=== PATIENT | male | born 1960 | race Caucasian/White ===

== ENCOUNTER 2025-07-22 08:06 | Outpatient (AMB) | payer MEDICARE, SELFPAY ==
--- OUTSIDE RECORDS SUMMARY | 2025-07-22 08:14 | XMS_ITS | Encounter Summary ---
Author Organization [facility] Address [address] [facility] [address] [place] [address] Phone Care Team Providers Care Brush Loader And Handle Attacher Name Role Phone Trae Arevalo MD Primary Care Provide r Radha Boles DO Primary Care Provider [phone]- [phone] Jovana Pearson MD Primary Care Provider [phone]- [phone] Encounter Details Date Type Department Care Team (Late st Contact Info) Description 04/28/2018 Transcribe Orders [facility] 30 [place] [address] Trae Arevalo MD 22 [facility] Floor 1 [place] [address] [email or web address] Social History Tobacco Use Types Packs/Day Years Used Date Smoking Tobacco: Former Cigarettes 0.3 5 1 10/03/1971 - 08/02/1977 Smokeless Tobacco: Never Alcohol Use Standard Drinks/Week Comments Yes 3 (1 standard drink = 0.6 oz pur e alcohol) Sex and Gender Information Value Date Recorded Sex Assigned at Male 02/04/2019 1:46 AM EDT Legal Sex Male 4:05 PM EST Gender Identity Male 02/04/2019 1:46 AM EDT Sexual Orientation Straight 03/16/2022 11 :25 AM EDT 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 journeyman Not on file Not on file Not on file documented as of this encounter Plan of Treatment Upcoming Encounters Date Type Department Care Team (Late st Contact Info) Description 08/05/2025 10:40 AM EST Office Visit [facility] 15 [facility] [address] [place] [address] Jovana Pearson MD [address] [address] 2025 10:45 AM EST Appointment [facility] [place] 22 [facility] 3rd [place] [address] Gera Harrington MD 22 [facility], [address] [address] 08/14/2025 11:30 AM EST Office Visit [facility] 22 [facility] 3rd [facility], [address] [place] [address] Woo Garcia, AGENT BASED MODELER [address] [place] [address] 01/27/2026 10:45 AM EDT Office Visit [facility] 10 [place] [address] Isaías Guidry MD [address] [place] [address] 2nd [place] [address] 02/10/2026 1:40 PM EDT Office Visit [facility] 15 [facility] [address] [place] [address] Jovana Pearson MD [address] [address] documented as of this encounter Visit Diagnoses Not on filedocumented in this encounter Additional Health Concerns Infection Onset Date Last Indicated Resolved Time CoV-Risk 01/09/2021 01/09/2021 01/19/2021 1:23 AM EDT CoV-Risk Comment:Per Ambulatory Triage Form 07/27/2021 07/28/202107/28 7:05 PM EST COVID-19 07/28/2021 07/28/2021 08/18/2021 1:21 AM EST CoV-Risk 12/02/2022 12/02/2022 12/13/2022 1:21 AM EDT documented as of this encounter Care Teams Brush Loader And Handle Attacher Relationship Specialty Start Date End Date Trae Arevalo MD [email or web address] PCP - General Internal Medicine 07/05/17 08/31/18 Radha Boles DO [address] [place] [phone] [email or web address] PCP - General 09/01/18 01/01/21 Jovana Pearson MD [address] [place] [address] [email or web address] PCP - General Family Medicine 01/02/21 documented as of this encounter Additional Source Comments The information contained in this document represents components of the legal health record. It is not the complete legal health record.[facility]
--- OUTSIDE RECORDS SUMMARY | 2025-07-22 08:14 | XMS_ITS | Encounter Summary ---
Author Organization [facility] Address [address] 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 201 [place] [address] 2025 10:45 AM EST Appointment [facility] [place] 22 [facility] 3rd [place] [address] Gera Harrington MD 22 [facility], [address] [place] [address] 08/14/2025 11:30 AM EST Office Visit [facility] 22 [facility] 3rd [facility], [address] [place] [address] Woo Garcia, [address] [address] 01/27/2026 10:45 AM EDT Office Visit [facility] [address] [place] [address] Isaías Guidry MD [address] [place] [address] 02/10/2026 1:40 PM EDT Office Visit [facility] [place] [facility] 15 [facility] [address] [place] [address] Jovana Pearson MD 15 [facility]. 201 [place] [address] documented as of this encounter Visit Diagnoses Not on filedocumented in this encounter Additional Health Concerns Infection Onset Date Last Indicated Resolved Time CoV-Risk 01/09/2021 01/09/2021 01/19/2021 1:23 AM EDT CoV-Risk Comment:Per Ambulatory Triage Form 07/27/2021 07/28/202107/281 7:05 PM EST COVID-19 07/28/2021 07/28/2021 08/18/2021 1:21 AM EST CoV-Risk 12/02/2022 12/02/2022 12/13/2022 1:21 AM EDT documented as of this encounter Care Teams Television Actor Relationship Specialty Start Date End Date Trae Arevalo MD [email or web address] PCP - General Internal Medicine 07/05/17 08/31/18 Radha Boles DO [address] [place] [address] [email or web address] PCP - General 09/01/18 01/01/21 Jovana Pearson MD [address] [place] [address] [email or web address] PCP - General Family Medicine 01/02/21 documented as of this encounter Additional Source Comments The information contained in this document represents components of the legal health record. It is not the complete legal health record.[facility]
--- OUTSIDE RECORDS SUMMARY | 2025-07-22 08:14 | XMS_ITS | Encounter Summary ---
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 [place] [address] 2025 10:45 AM EST Appointment [facility] [place] 22 [facility] 3rd [place] [address] Gera Harrington MD 22 [facility], [address] [place] [address] 08/14/2025 11:30 AM EST Office Visit [facility] 22 [facility] 3rd [facility], [address] [place] [address] Woo Garcia, [address] [address] 01/27/2026 10:45 AM EDT Office Visit [facility] [address] [place] [address] Isaías Guidry MD [address] [place] [address] 02/10/2026 1:40 PM EDT Office Visit [facility] [place] [facility] 15 [facility] [address] [place] [address] Jovana Pearson MD 15 [facility]. 201 [place] [address] documented as of this encounter Visit Diagnoses Not on filedocumented in this encounter Additional Health Concerns Infection Onset Date Last Indicated Resolved Time CoV-Risk 01/09/2021 01/09/2021 01/19/2021 1:23 AM EDT CoV-Risk Comment:Per Ambulatory Triage Form 07/27/2021 07/28/202107/281 7:05 PM EST COVID-19 07/28/2021 07/28/2021 08/18/2021 1:21 AM EST CoV-Risk 12/02/2022 12/02/2022 12/13/2022 1:21 AM EDT Assessment Noted Time PHQ-2 Depression Total Score: 1 06/27/20 11:38 AM EDT documented as of this encounter Care Teams Clinic Receptionist Relationship Specialty Start Date End Date Trae Arevalo MD [email or web address] PCP - General Internal Medicine 07/05/17 08/31/18 Radha Boles DO [address] [place] [address] [email or web address] PCP - General 09/01/18 01/01/21 Jovana Pearson MD [address] [place] [address] [email or web address] PCP - General Family Medicine 01/02/21 documented as of this encounter Additional Source Comments The information contained in this document represents components of the legal health record. It is not the complete legal health record.[facility]
--- OUTSIDE RECORDS SUMMARY | 2025-07-22 08:14 | XMS_ITS | Encounter Summary ---
Author Organization [facility] Address [address] [facility] [address] [place] [address] Phone Care Team Providers Care Cpht Name Role Phone Trae Arevalo MD Primary Care Provide r Radha Boles DO Primary Care Provider [phone]- [phone] Jovana Pearson MD Primary Care Provider [phone]- [phone] Encounter Details Date Type Department Care Team (Late st Contact Info) Description 05/09/2018 Ancillary Orders [facility] Rheumatology [address] [place] [address] Eduin Paris MD [email or web address] Claudication Social History Tobacco Use Types Packs/Day Years [...] 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 [address] [place] [address] 2025 10:45 AM EST Appointment [facility] [address] 3rd [place] [address] Gera Harrington MD 22 [facility], [address] [place] [address] 08/14/2025 11:30 AM EST Office Visit [facility] [address] [place] [address] 3rd Floor, [address] [place] [address] Woo Garcia, [address] [address] 01/27/2026 10:45 AM EDT Office Visit [facility] [address] [place] [address] Isaías Guidry MD [address] [place] [address] 02/10/2026 1:40 PM EDT Office Visit [facility] Primary Care 15 [facility] [address] [place] [address] Jovana Pearson MD 15 [facility]. 201 [place] [address] documented as of this encounter Results * US Ankle/Brachial Indices (05/09/2018 4:42 PM EDT) Anatomical Region Laterality Modality Ankle Left, Ankle Right Ultrasou nd Narrative 05/10/2018 10:45 AM EDT See scanned document us Eduin Paris MD CV US VASCULAR Final Resu lt documented in this encounter Visit Diagnoses Diagnosis Claudication Unspecified peripheral vascular disease Claudication Unspecified peripheral vascular disease documented in this encounter Additional Health Concerns Infection Onset Date Last Indicated Resolved Time CoV-Risk 01/09/2021 01/09/2021 01/19/2021 1:23 AM EDT CoV-Risk Comment:Per Ambulatory Triage Form 07/27/2021 07/28/202107/28 7:05 PM EST COVID-19 07/28/2021 07/28/2021 08/18/2021 1:21 AM EST CoV-Risk 12/02/2022 12/02/2022 12/13/2022 1:21 AM EDT documented as of this encounter Care Teams Cpht Relationship Specialty Start Date End Date Trae Arevalo MD [email or web address] PCP - General Internal Medicine 07/05/17 08/31/18 Radha Boles DO [address] [place] [address] [email or web address] PCP - General 09/01/18 01/01/21 Jovana Pearson MD [address] [place] [address] [email or web address] PCP - General Family Medicine 01/02/21 documented as of this encounter Additional Source Comments The information contained in this document represents components of the legal health record. It is not the complete legal health record.[facility]
--- OUTSIDE RECORDS SUMMARY | 2025-07-22 08:14 | XMS_ITS | Clinical Summary ---
Author Organization Formerly [facility] Address [address] [facility] [address] [place] [phone] Phone Care Team Providers Care Bunk Assembler Name Role Phone Jovana Pearson MD Primary Care Provider Allergies Active Allergy Reactions Criticality Noted Date Comments Amoxicillin Nausea and/or Vomiting 08/02/2017 Does fine with cephalosporins Caffeine 12/02/2022 Erythromycin (Bulk) Nausea and/or Vomiting 08/02/2017 Tolerates azithromycin Moxifloxacin Mental Status Change 08/02/2017 Agitation (encephalopathy) Sulfa (Sulfonamide Antibiotics) Diarrhea,GI Upset,Nausea and/or Vomiting 06/27/2017 Tizanidine 04/28/2020 Nightmare Zolmitriptan Palpitations Low 08/02/2017 Medications MV,YAZAN,MIN/IRON/F OLIC ACID/LUT (COMPLETE MULTI ORAL) 1 tablet daily. Active cholecalciferol (VITAMIN D3) 4,000 unit tablet 1 tablet daily. Active Lactobac 41-B.bifid,lactis -FOS (ULTIMATE PROBIOTIC-10) 111 mg (25 billion cell) Cap Take 1 capsule by mouth daily. 30 capsule 11 7 Active aspirin 81 mg chewable tablet Take 81 mg by mouth daily. Active ZINC ORAL Take by mouth. Activ e LYSINE ORAL Take by mouth as needed. Active ECHINACEA ORAL Take by mouth. Active butterbur root extract 50 mg Cap Take by mouth. Active solifenacin (VESICARE) 10 MG tablet Take 10 mg by mouth every morning. 4 Active dicyclomine (BENTYL) 20 mg tablet Take 1 tablet (20 mg total) by mouth every 6 (six) hours as needed (for abdominal spasm). 30 tablet 1 4 Active flunisolide 25 mcg (0.025 %) SpryIndications:A cute non-recurrent frontal sinusitis INHALE TWO SPRAYS IN THE AFFECTED NOSTRIL TWICE A DAY 25 mL 5 5 Active promethazine (PHENERGAN) 25 MG tabletIndications :Nonintractable headache, unspecified chronicity pattern, unspecified headache type TAKE ONE TABLET BY MOUTH EVERY 6 HOURS NEEDED FOR NAUSEA 20 tablet 11 5 Active amLODIPine (NORVASC) 10 MG tabletIndications :Essential hypertension TAKE ONE TABLET BY MOUTH EVERY DAY 90 tablet 3 5 Active atorvastatin (LIPITOR) 20 MG tablet TAKE ONE TABLET BY MOUTH EVERY DAY 90 tablet 3 5 Active escitalopram oxalate (LEXAPRO) 10 MG tablet TAKE ONE AND ONE-HALF TABLET BY MOUTH ONCE DAILY 135 tablet 3 5 Active BREO ELLIPTA 100-25 mcg/dose inhaler INHALE ONE PUFF BY MOUTH EVERY DAY 60 each 4 5 Active buPROPion (WELLBUTRIN XL) 300 MG ER 24 hr tabletIndications :Recurrent major depressive disorder, in full remission Take 1 tablet (300 mg total) by mouth daily. 90 tablet 3 5 Active albuterol 90 mcg/actuation inhalerIndication s:Mild intermittent asthma without complication Inhale 2 puffs into the lungs every 4 (four) hours as needed for wheezing or shortness of breath/dyspnea (and/or chest tightness). 8 g 1 5 Active Active Problems Problem Noted Date Diagnosed Date Spinal stenosis of lumbar region 05/17/2024 Assessment & Plan (12/04/2024 1:29 PM EDT): Assessment & Plan (05/17/2024 1:30 PM EDT): His prior surgeon Dr Payton has retired but I will refer him back to [facility] for further E&M [place] cardiac risk 10-20% in next 10 years 05/17/2024 Overview (05/17/2024): With severe atherosclerosis seen on abdominal imaging. Started statin 04/2024 Assessment & Plan (12/04/2024 1:29 PM EDT): Assessment & Plan (05/17/2024 1:32 PM EDT): Reviewed atherosclerosis findings and cardiac risk with pt; his LDL is good but with visible severe atherosclerosis, elevated risk, HTN and h/o cardiac tumor I recommend statin therapy. He is in agreement. Primary osteoarthritis involving multiple joints 08/05/2023 Assessment & Plan (01/28/2024 8:50 PM EDT): Osteoarthritis in multiple joints along with spinal stenosis. He can continue with gabapentin 300 mg a day as needed. He otherwise does well with minimal stiffness and no swelling. Assessment & Plan (08/05/2023 2:58 PM EST): Known degenerative osteoarthritis in multiple areas with stiffness but no swelling. He has had spinal fusion in the lumbar spine as well. He can continue with gabapentin 300 mg twice a day. He does not need any trigger point injections today. He will call me if he runs into trouble. Seasonal allergies 01/06/2023 Overactive bladder 07/13/2022 Assessment & Plan (12/04/2024 1:29 PM EDT): Routine medical exam 05/14/2021 Assessment & Plan (08/04/2023 1:49 PM EST): 62 y.o. male here for complete physical exam. We discussed the need for increasing his asthma controller medicines given frequent use of rescue inhaler both to improve quality of life and to decrease inflammation and COPD progression. I will reach out to his ventilated rib fitter about this. Ramiro was not previously aware of any scrotal swelling so it has been asymptomatic. I sent him for an ultrasound to evaluate for hernia vs hydrocele vs varicocele (it doesnot seem to be arising from the testis per se) and reviewed warning signs of incarcerated or strangulated hernia that should prompt him to seek emergency care in the meantime. Other comorbidities stable and/or managed by specialists as noted in the HPI. USPSTF A&B recommendations reviewed with pt. BP: At goal, continue current medications Lab Results Component Value Date NA 140 02/09/2023 K 4.2 02/09/2023 CL 102 02/09/2023 CO2 29 02/09/2023 BUN 12 02/09/2023 CRE 0.70 02/09/2023 UCRE 135 05/13/2021 GLU 75 02/09/2023 CA 9.5 02/09/2023 GFR 104 02/09/2023 ANION 13 02/09/2023 BMI: WNL STI testing for teens and adults at risk, and at least one lifetime HIV and hep C test: Done previously and normal/negative PrEP for persons at high risk of HIV: N/A plans in the next year: N/A patient/partner is postmenopausal Depression and anxiety screens: Positive and we agreed to increase his lexapro from 15 --> 20 mg. Let's see if that helps with the fatigue. Smoking cessation counseling: N/A Alcohol use counseling: N/A LTBI screening in people at increased risk: N/A Vaccinations: TD today, recommend RSV Last dental visit: up to date Lipid screening to consider statin for primary prevention for adults 40-75, or at younger ages with risk factors: checked last year, repeat 3-5 years This SmartLink has been updated to reference the ASCVD 2013 equation and not the 2018 equations. The 10-year ASCVD risk score (Fide CHA, et al., 2019) is: 7.8% Values used to calculate the score: Age: 62 years Sex: Male Is Non- : No Diabetic: No Tobacco smoker: No Systolic Blood Pressure: 118 mmHg Is BP treated: Yes HDL Cholesterol: 75 mg/dL Total Cholesterol: 178 mg/dL Glucose/diabetes screening for people 35 - 70 with BMI >25: N/A Aspirin for primary prevention for adults 40-59 with risk >10%, but no older: N/A Colonoscopy for adults 45-75, and can consider at older ages: overdue, referred to [facility] Serial lung cancer screening for adults age 50-80 with 20+ pack year history who currently smoke or quit in the last 15 years: N/A Prostate screening discussion for people with a prostate age 55-69: WNL last year, will repeat next year DEXA screen for women 65 or older, or others at risk (e.g. Parental h/o hip fx, low BMI, smoking, OST score <2 = 0.2 x[@LASTWEIGHT@ - 62 y.o.] ): has osteoporosis and I have previously recommended a bisphosphonate. He is considering this. Assessment & Plan (07/13/2022 4:08 PM EST): 61 y.o. male here for complete physical exam. Discussed that RSV testing will not provide actionable clinical information in a man his age. He is not around anybody young enough to be particularly vulnerable. He is not having a COPD exacerbation and meets criteria for antibiotics at this time. He is not short of breath so does not need oral steroids. I encouraged Ramiro to discuss his Raynaud's disease with his medicine assistant in hopes that they have something more to add, since neither appropriate clothing nor a hefty dose of amlodipine have been helpful. We discussed that his urinary symptoms are likely attributable to an enlarged prostate. Since he is having symptoms, and since his father had prostate cancer, I do recommend checking a PSA. However, BPH is more common. We discussed that this is a treatable condition. Whether it needs to be treated/is uncomfortable enough to warrant taking another medication on top of the medicines he takes already is a question that I leave up to him. I did offer him a prescription for Flomax and he declines this today but will think about it. If he decides in the future that that is something he would like to take he is welcome to call me and I will prescribe it for him USPSTF A&B recommendations reviewed with pt. BP: At goal, continue current medications BMI: WNL STI testing for teens and adults at risk, and at least one lifetime HIV and hep C test: Done previously and normal/negative PrEP for persons at high risk of HIV: N/A plans in the next year: N/A patient/partner is postmenopausal Depression screen: Negative Smoking cessation counseling: N/A Alcohol use counseling: N/A LTBI screening in people at increased risk: Done previously and normal/negative Vaccinations: up to date Last dental visit: up to date Lipid screening to consider statin for primary prevention for adults 40-75, or at younger ages with risk factors: done last year, will repeat This SmartLink has been updated to reference the ASCVD 2013 equation and not the 2018 equations. The 10-year ASCVD risk score (Fide CHA, et al., 2019) is: 7.3% Values used to calculate the score: Age: 61 years Sex: Male Is Non- : No Diabetic: No Tobacco smoker: No Systolic Blood Pressure: 118 mmHg Is BP treated: Yes HDL Cholesterol: 67 mg/dL Total Cholesterol: 166 mg/dL Glucose/diabetes screening for people 35 - 70 with BMI >25: N/A Colonoscopy for adults 45-75, and can consider at older ages: Referred to [facility] Serial lung cancer screening for adults age 50-80 with 20+ pack year history who currently smoke or quit in the last 15 years: N/A Prostate screening discussion for people with a prostate age 55-69: will do DEXA screen for women 65 or older, or others at risk (e.g. Parental h/o hip fx, low BMI, smoking, OST score <2 = 0.2 x[@LASTWEIGHT@ - 61 y.o.] ): will do to monitor osteopenia Assessment & Plan (05/14/2021 4:08 PM EDT): 60 y.o. male here for complete physical exam. I recommend he use his inhalers when he is short of breath. Other medical conditions are stable USPSTF A&B recommendations reviewed with pt. BP: At goal, continue current medications BMI: WNL STI testing for teens and adults at risk, and at least one lifetime HIV and hep C test: HIV done today, HCV negative previously PrEP for persons at high risk of HIV: N/A plans in the next year: N/A patient/partner is postmenopausal Depression screen: per above Smoking cessation counseling: N/A Alcohol use counseling: about 2/night. Sometimes he's concerned about it, sometimes it's more than 2. I certainly do not recommend he drink any more than 2 at night and if he is concerned about it, he should drink less. I advised him not to buy it in the first place. LTBI screening in people at increased risk: Done previously and normal/negative per pt Vaccinations: shingrix #1 today, otherwise up-to-date Last dental visit: up to date Lipid screening to consider statin for primary prevention for adults 40-75, or at younger ages with risk factors: will do today Glucose/diabetes screening for people 35 - 70 with BMI >25: N/A Colonoscopy for adults 45-75, and can consider at older ages: due, referred to [facility] Aspirin for primary prevention for adults 50-59 with risk >10%, and can consider for 60-69: Depends on lipids Serial lung cancer screening for adults age 50-80 with 20+ pack year history who currently smoke or quit in the last 15 years: N/A Prostate screening discussion for people with a prostate age 55-69: done today Chronic obstructive pulmonary disease 06/01/2019 Assessment & Plan (12/04/2024 1:29 PM EDT): Assessment & Plan (09/06/2023 4:52 PM EST): Improving, but still significantly impaired. This is a good time for a chest x- ray although he has already had azithromycin so there's probably not anything to add from a medication standpoint Assessment & Plan (05/17/2023 4:07 PM EDT): With increased dyspnea, increased sputum purulence, and arguably increased sputum production. Discussed rationale for abx in this setting. Low suspicion for PNA given afebrile, normal O2 sat, normal lung exam, but abx will cover this anyway. Discussed that it is hard to know whether he needs prednisone for dyspnea since he has not had access to albuterol. Unfortunately I cannot offer a breathing tx in clinic to see how he responds. Will refill rescue inhaler and prescribed prednisone; advised Ramiro if the albuterol works well and he needs it infrequently there is no need for prednisone but if he is needing it multiple times per day I would go ahead and take the prednisone due to increased work of breathing, increased inflammation, risk of tachyphylaxis, and risk of worsening the tachycardia he is already presenting with today. Assessment & Plan (01/06/2023 2:58 PM EDT): Recommend trial of nasal antihistamine for allergy symptoms in addition to the medicines that he is currently using. Recommend that he carry around his rescue inhaler for breathing as his lungs sound pretty tight on exam right now. Unfortunately I was not able to offer him a nebulizer treatment as we are currently under public health emergency guidelines. Assessment & Plan (11/24/2022 1:40 PM EDT): With increased sputum production, increased sputum purulence, and increased dyspnea. Recommend abx, recommend prednisone. Discussed R&B of doxycycline including but not limtied to GI upset, sun exposure rash; of prednisone including but not limited to temporary increased in BP, activating sx. Unclear if there is a concomitant sinusitis but doxycycline should cover both. Assessment & Plan (01/08/2022 1:06 PM EDT): We discussed the pathophysiology of asthma. I recommend that he start using his albuterol when he feels short of breath. I explained that given his comorbidities, it is difficult to say just based on our conversation whether it is his heart or his lungs that are making him short of breath but if he gets some relief from his albuterol that it is at least partially pulmonary. If he does find it is effective for shortness of breath brought on by particular activities then he should go ahead and use it prior to those activities. I further explained that if his asthma is untreated then chronic inflammation in the lungs can lead to scarring and, later on, worse asthma. Therefore, if he does get relief from his albuterol, and if he is needing it more than once or twice per week, he should go ahead and start his Flovent for a controller medicine. I will start him on the lowest dose and if he does find that he needs it I would like to know how he is doing on it because if it is not enough then we will increase the dose. Assessment & Plan (06/01/2019 11:58 AM EDT): The patient has a mild to moderate COPD exacerbation is gradually improving. I reviewed with him the fact that he does indeed have chest x-ray findings consistent with COPD and I strongly encouraged him to quit smoking marijuana and avoid exposure to secondhand smoke. For now he can continue using his inhalers and when his symptoms start to improve and resolve he can discontinue the steroid inhaler and just use the albuterol as needed. He should also follow-up as scheduled with his PCP to discuss whether he should be on a controller medication. Mild intermittent asthma without complication Assessment & Plan (05/08/2024 9:27 AM EDT): His asthma/COPD overlap is well-controlled with daily use of Breo. He has not required the use of albuterol recently. He should continue using Breo daily and keep albuterol available for emergencies. PAD (peripheral artery disease) 06/15/2018 Overview (06/24/2022): low LDL but elevated CAD risk 2020 (8.2%), declined statin Assessment & Plan (12/04/2024 1:29 PM EDT): Assessment & Plan (07/03/2024 5:06 PM EST): Currently without any symptoms concerning for claudication On his lower extremity CHRISTOPHER/duplex that was just done CHRISTOPHER numbers slightly higher but overall probably unchanged, bilateral stents are patent. He did have a CTA done due to his GI issues, which was notable for moderate- severe aorta aortoiliac atherosclerosis. Severe atherosclerosis seen in the bifurcation of the bilateral common femoral arteries. His PCP started him on atorvastatin 20 mg following the results of the CTA. Repeat lipids/LFTs mid July, LDL goal should be less than 70 Continue aspirin 81 mg daily Follow-up with Dr. Harrington in 6 months Assessment & Plan (03/30/2023 1:11 PM EDT): He has peripheral arterial disease. He had an angiogram at [facility] which showed a moderate disease on the right side, see above. He had angioplasty and stenting to the right distal SFA and the right proximal popliteal artery. He was initially reporting a lot of pain in his foot and edema in his leg. Over the past month, his symptoms have significantly improved. He is no longer getting pain in the right foot. He has minimal lower extremity edema. He is very happy with the results. His follow-up CHRISTOPHER was normal. Assessment & Plan (02/23/2023 2:40 PM EDT): He has peripheral arterial disease. He had an angiogram at [facility] and had right distal SFA and right proximal popliteal artery occlusion and received angioplasty and stenting to both. He has had a lot of lower extremity edema on the right. He has a difficult time walking and has pain in his foot. A week later, he had an ultrasound which showed that the popliteal artery was patent. There was probably some stenosis in the right superficial femoral artery. Today, we asked the geologic technician if she would be able to do an CHRISTOPHER. CHRISTOPHER was done and was normal on both sides, 0.94 on the right and 0.98 on the left. We also asked the geologic technician to rule out DVT. The venous ultrasound did show no evidence of DVT. Given this normal testing, I have suggested that the patient follow-up in 1 month. Assessment & Plan (02/04/2023 3:01 PM EDT): Reviewed MARCELO/CHRISTOPHER with Dr Harrington, he has an occluded right popliteal artery. This is correlative with his progressive claudication symptoms. Will get him set up for a peripheral angiogram at [facility] in the near future. He will continue aspirin. Assessment & Plan (05/13/2022 3:50 PM EDT): Reviewed his recent MARCELO and CHRISTOPHER. No explanation for the cramping he's experiencing in his right leg (he does have a history of spinal issues, I've encouraged him to follow up with the provider managing this condition). He will continue aspirin. Repeat MARCELO/CHRISTOPHER in 6 months. Hypertensive disorder 07/06/2017 Assessment & Plan (02/05/2025 4:28 PM EDT): At goal for age and comorbidities without signs or symptoms of end organ damage. Continue current medications. Assessment & Plan (12/04/2024 1:29 PM EDT): At goal for age and comorbidities without signs or symptoms of end organ damage. Continue current medications. Orders: Lipid panel; Future Assessment & Plan (07/03/2024 5:07 PM EST): Blood pressure little elevated here in the office today 132/92 Not checking blood pressure at home He did start checking his blood pressure at home, if persistently elevated can adjust his antihypertensives as needed Assessment & Plan (05/08/2024 9:26 AM EDT): At goal for age and comorbidities without signs or symptoms of end organ damage. Continue current medications. Assessment & Plan (03/30/2023 1:11 PM EDT): Blood pressure in the office today is elevated. His blood pressures are usually normal. He tells me that he believes his blood pressure is elevated because he is having issues getting his psychiatric medications refilled. We will keep an eye on this. He will continue to take his current medications. Assessment & Plan (02/23/2023 2:40 PM EDT): Adequately controlled. No medication changes. Assessment & Plan (01/06/2023 2:58 PM EDT): At goal for age and comorbidities without signs or symptoms of end organ damage. Continue current medications. Assessment & Plan (06/24/2022 12:59 PM EDT): Not at goal because not taking amlodipine and night sweats have not resolved. Sounds like these are a lingering symptom of COVID which I expect will continue to improve slowly as they have been but I would really like Ramiro to start taking his medicine again tonight, which he agrees to do. Assessment & Plan (01/08/2022 1:07 PM EDT): At goal, continue current medications. Further work-up for dyspnea pending per Dr. Harrington. Assessment & Plan (05/18/2018 4:05 PM EDT): His blood pressures well controlled on the amlodipine. He was started on this primarily because of his Raynaud's phenomenon. 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 Villarreal) Assessment & Plan (12/04/2024 1:29 PM EDT): Assessment & Plan (07/03/2024 5:08 PM EST): Apparently this was excised at [facility] with Dr. Juarez He just had an echocardiogram done which did not show any evidence of myxoma Assessment & Plan (05/08/2024 9:27 AM EDT): The recent echocardiogram showed normal ejection fraction and no evidence of myxoma. However, the study was technically difficult due to tight rib spaces. Additional imaging, such as a CAT scan, may be recommended by his medicine assistant if clinically indicated but we reviewed his prior TTE which showed the same findigns of tight rib spacing and no further imaging was felt necessary at the time. He has an appointment with the medicine assistant's nurse practitioner next month to discuss further steps. Recurrent major depressive disorder, in full rem ission Assessment & Plan (02/05/2025 4:28 PM EDT): - Reports feeling better on Wellbutrin 300 mg daily and has noticed an improvement in mood. - Continues to experience difficulty getting out of bed in the morning despite adequate sleep. - Discussed the importance of being kind to oneself and not feeling guilty about occasional difficulty in getting up. - Will continue with the current dosage of Wellbutrin 300 mg daily and Lexapro as previously prescribed. Assessment & Plan (12/04/2024 1:29 PM EDT): Will try tapering off medications. He prefers to start with the Wellbutrin. Decrease from 300 XL daily to 100 SR BID to 100 SR daily and then f/u in person; if that goes well will taper off Lexapro too. Discussed possibility of withdrawal sx (not unsafe, can slow down taper PRN) vs recrudescent mood sx (a good indicator to resume use). Assessment & Plan (10/04/2023 1:42 PM EST): Feeling much better w/current medicines and less recreational substance use. Continue current regimen. Localized osteoporosis Overview (03/03/2023): Osteopenia 2017 --> osteoporosis R femur 2022 Assessment & Plan (12/11/2018 12:03 PM EDT): Fall and fracture prevention strategies and maintenance of vitamin D3 1000 units daily will be done. Bone densitometry should be repeated in 2020. Raynaud's syndrome Assessment & Plan (01/08/2022 1:10 PM EDT): Okay to use topical steroid for up to a couple of weeks to help with healing. Continue generous use of topical emollients. Recommend use of silk glove liners in winter and minimize exposure to cold as much as possible. Assessment & Plan (02/20/2018 12:01 PM EDT): Raynaud's disease has been active but stable without digital pits or ulcers on 5 mg of amlodipine daily and good oral hydration. Resolved Problems Problem Noted Date Diagnosed Date Resolved Date Noninfectious gastroenteritis and colitis 05/17/2024 12/04/2024 Assessment & Plan (05/17/2024 1:28 PM EDT): The etiology of his colitis remains uncertain, but the rapid resolution of his symptoms is a positive sign. He experienced severe stomach cramps followed by diarrhea and significant rectal bleeding, which led to an ER visit. A CT scan did not reveal any definite cause, but colitis was suspected. Normal lactate argues against ischemia and normal CBC against acute infection. He was given an antispasmodic and an acid-reducing medication which he is encoruaged to continue for sx relief. He has an appointment with gastroenterology on June 26, 2024, and all relevant information, including ER notes and the CT scan, will be forwarded to [facility]. He should continue to monitor his symptoms and maintain a high-fiber diet. Night sweats 09/06/2023 10/04/2023 Overview (10/04/2023): Probably 2/2 EtOH - much improved w/less drinking Assessment & Plan (09/06/2023 4:53 PM EST): I do not think he needs to see hem/onc yet. Will start with labs as noted here as well as his chest x-ray. Most likely contributory medication is his escitalopram but he has been on the same dose for several years so it is probably not an issue. I asked him to stop drinking beer completely for at least a week to see if that eliminates his night sweats and then we can take it from there. Asthma exacerbation 09/01/2023 10/04/19 24 Scrotal swelling 08/04/2023 10/04/2023 Overview (10/04/2023): US sounds hydrocele. Asx, no intervention Right leg swelling 06/08/2022 Assessment & Plan (06/08/2022 12:46 PM EDT): Patient completed the course of Augmentin for dog bite on the right paiz. Decreased erythema noted edema and pain over the lateral malleolus and distal tibia on the right. Ultrasound obtained on last visit which was negative for DVT -We will hold on further antibiotics -Obtain x-ray of the right tibia to rule out fracture -Start diclofenac 75 mg p.o. twice daily, patient was a advised to avoid NSAIDs -Orthotics and prosthetics referral for compression stocking -labs: CBC,BMP,RF, SAILAJA, uric acid, CRP, ESR Right leg pain 05/25/2022 06/08/2022 Assessment & Plan (05/25/2022 10:54 AM EDT): Patient noted to have a right lower extremity positive edema and surrounding erythema with open wounds secondary to dog bite which was about 2 weeks ago. The patient states that the dog is up-to-date on all vaccines. -start Augmentin 875mg po bid -wash and cleanse the region and put antibiotic ointment -US of RLE to r/o DVT/abscess -Tdap up to date. COVID-19 05/14/2022 06/08/2022 Pain in right thigh 10/08/2021 06/08/20 22 Overview (10/08/2021): Exam suggests OA right hip Knee exam fairly normal , suspect pain referred from hip Check XR Right hip, R knee Less like radiculopathy XR [place] [facility] pending Assessment & Plan (02/01/2022 12:25 PM EDT): Exam suggests OA right hip Knee exam fairly normal , suspect pain from hip Check CR hip and knee Less likely radiculopathy but he does have significant degenerative changes of the spine Cervical radiculopathy 06/17/202006/08 Assessment & Plan (06/17/2020 11:35 AM EDT): He has a mild exacerbation after over exerting over the weekend. He has not seen much improvement yet with gabapentin. I advised him to increase the dose to 300 mg in the morning and 600 mg at night for the next 4 to 5 days. If he is not seeing any improvement he can increase to 300 morning, 300 afternoon, and and 600 mg at bedtime. He will start physical therapy as recommended previous not seeing improvement he will follow-up as scheduled with [facility]. Cervical stenosis of spine 04/30/2020 1 Assessment & Plan (04/30/2020 12:22 PM EDT): Patient presents with 2-week history of acute left-sided radicular cervical pain. I reviewed the x-ray which shows severe multilevel spondylitic changes with both facet arthropathy and discogenic disease but no spondylolisthesis and I strongly suspect that he has a disc herniation or rather severe acute left neuroforaminal stenosis. An MRI is requested and he will finish up the course of prednisone and I gave him a refill in case he has recurrence of pain afterwards. I will review the MRI and then decide on injection therapy, referral to physiatry, or physical therapy. As I explained to him today his usual tender point injections for his lumbar enthesopathy will be withheld today because he is on glucocorticoids. All of his questions were answered. 28 minutes was spent in [id number] conversation with the patient during this exam. Injury of tendon of left rotator cuff 04/30/2020 06/08/2022 Assessment & Plan (04/30/2020 12:21 PM EDT): Coincident with his cervical radiculopathy I believe he is also incurred an impingement syndrome in the left shoulder. This has resolved partially with the glucocorticoids given by his primary care physician. Range of motion and pendulum and wall walking motion exercises followed perhaps by a cortisone injection may be helpful. I doubt a rotator cuff tear of significant nature. 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 Alcohol abuse 05/18/2018 06/08/2022 Overview (01/08/2022): In remission as of 2021 Assessment & Plan (05/18/2018 4:06 PM EDT): I believe he drinks excessively. He does drink every day and based on his blood work he has elevated liver enzymes and an elevated MCV. I recommended that he try to cut back on drinking or abstain completely. Claudication of left lower extremity 02/20/2018 05/14/2021 Assessment & Plan (05/18/2018 4:06 PM EDT): He does have significant claudication. He has peripheral arterial disease with severe stenosis of the right SFA and occlusion of the left SFA. His symptoms do sound like claudication. I discussed management options with him. I initially was going to start him on cilostazol however this is contraindicated on his antidepressant as they can both together prolonged QT. He does feel very limited by his leg pain. Ultimately we decided to proceed with a peripheral angiogram. This will be set up at [facility] within the next several weeks. I will plan to try to open up his left SFA to see if this relieves his symptoms. Risks and benefits explained. I did recommend that he take a baby aspirin lifelong. We will continue to optimize his cardiac risk factors. I am going to check some blood work including a lipid profile. Assessment & Plan (02/20/2018 12:02 PM EDT): Patient's exertional left calf burning it is consistent with vascular claudication. Of interest as he has markedly diminished dorsalis pedis and posterior tibialis pulses bilaterally so we will obtain ultrasound and arterial flow studies. Multiple drug allergies 08/08/201704/29 Overview (08/08/2017): Mostly intolerances - constrains antibiotic choices Methicillin susceptible Stap hylococcus aureus infection 08/02/2017 05/17/2024 Assessment & Plan (10/04/2023 1:43 PM EST): Responding appropriately to abx. Per pt request, refilled keflex to have on hand if this flares again; this last one started over the weekend and he prefers not to have to wait to start tx. Cautioned about not using abx if the interval inbetween flares is very long. Chronic folliculitis 08/02/2017 021 Migraine 08/02/2017 06/08/2022 Anemia 07/06/2017 06/19/2019 Edema of extremities 07/06/2017 021 Hemorrhoids 07/06/2017 06/08/2022 Neuritis of upper extremity 07/06/2017 06/08/2022 Osteoporosis 07/06/2017 06/08/2022 Spinal enthesopathy of lumbar region 07/06/2017 06/08/2022 Assessment & Plan (01/29/2020 2:46 PM EDT): Acute flare of lumbosacral spinal enthesopathy will be treated with local injection therapy today. Assessment & Plan (06/11/2019 12:50 PM EDT): Relative rest, local heat, continuance of current medication and local injection therapy today will be accomplished. Assessment & Plan (03/12/2019 12:08 PM EDT): Patient is having a flareup of lumbosacral spinal enthesopathy which should be treated with local injection therapy today. This has been helpful before. In addition I would like him to continue on the S[place] as needed at nighttime. He will also continue warmth as needed. There are no long track signs, signs of neurogenic claudication or lumbar radiculopathy. Assessment & Plan (12/11/2018 12:03 PM EDT): Flare of lumbar enthesopathy today will be treated with local injection into the left iliolumbar ligament. He does have multilevel lumbar spondylosis but no signs of radiculopathy or neurogenic claudication. Assessment & Plan (09/04/2018 12:44 PM EST): Patient is having a flareup of right lumbosacral spinal enthesopathy without evidence of neurogenic claudication or radiculopathy. He will receive a cortisone injection today. Overall axial and appendicular osteoarthritis as well as chronic intermittent low back pain is well controlled using 75 mg of diclofenac twice daily on an as-needed basis. He rarely takes 2 pills a day and tolerates it well. We discussed long-term potential risks of diclofenac including liver function abnormalities and indeed on his last liver functions the transaminases were slightly elevated. We also talked about potential cardiovascular complications. I would like to find him another NSAID to use. We will first check his comprehensive chemistry profile today and will get back to him by phone call within the next 48 hours. All of his questions were answered. Assessment & Plan (02/20/2018 12:00 PM EDT): Flaring back pain and the patient with an enthesopathy process and multilevel lumbar spondylosis of be treated with local injection therapy today. Spondylolisthesis 07/06/2017 06/08/2022 Spondylolisthesis at L4-L5 level 06/08/2022 Assessment & Plan (05/04/2022 11:33 AM EDT): Hx of chronic LBP, receives intermittent trigger point injections with relief with myofascial pain Repeated TP injections today--> please see procedure note Continue HEP May continue low dose Gabapentin BID. Denies sedation XR -did show progression of degenerative arthritis Stable anterolisthesis of L5 on S1of lumbar spine -continue acupuncture which has been helpful; -continue HEP -may continue CBD oil which he has found helpful Assessment & Plan (02/01/2022 12:22 PM EDT): Hx of chronic LBP, receives intermittent trigger point injections with relief Repeated TP injections today--> please see procedure note Continue HEP May continue low dose Gabapentin BID. Denies sedation XR -did show progression of degenerative arthritis Stable anterolisthesis of L5 on S1of lumbar spine Assessment & Plan (10/08/2021 1:16 PM EST): Hx of chronic LBP, receives intermittent trigger point injections with relief Repeated TP injections today--> please see procedure note Continue HEP May continue low dose flexeril q hs which has been helpful and Gabapentin BID. Denies sedation XR -UTD images of lumbar spine today Methicillin susceptible Stap hylococcus aureus infection 06/08/2022 Overview (05/14/2021): With recurrent abscesses, was on suppressive cephalexin and now just as needed Encounters Date Type Department Care Team Description 07/05/2025 9:53 AM EST - 07/05/2025 11:59 PM EST Hospital Encounter [facility] [address] [place] [address] Gera Harrington MD Discharge Disposition: Home or Self Care 06/03/2025 10:45 AM EDT Office Visit [facility] [address] [place] [address] Isaías Guidry MD Mild intermittent asthma without complication from Last 3 Months Immunizations Immunization Administration Dates Next Due COVID-19 (Pre-06/20) Moderna Vaccine, mRNA, PF 12/21/2020,11/23/2020 INFLUENZA, SPLIT VIRUS, TRIVALENT PF 05/07/2024, 05/27/2017,05/28/2016 INFLUENZA, SPLIT VIRUS, TRIV ALENT W/ PRESERVATIVE IM 06/17/2014,06/14/2012 Influenza Quadrivalent MDCK Preservative Free IM 07/15/2021 Influenza Quadrivalent Preservative Free IM 04/2023,06/23/2022 Influenza Quadrivalent w/ Preservative IM 2014 Influenza Recombinant Soraya valent Preservative Free IM 05/20/2020,06/01/2019,05/16/2018 Influenza trivalent preserva tive free intradermal 05/22/2013 Influenza, Unspecified Formulation 05/20/2020, Pneumococcal conjugate PCV13 06/29/2018 Pneumococcal conjugate PCV20 12/03/2024 Pneumococcal polysaccharide PPSV23 05/22/2013 Td (adult),2 Lf Tetanus Toxo id, PF, Adsorbed 08/03/2023 Td, unspecified formulation 08/29/1998 Tdap 11/30/2012 Zoster recombinant 01/07/2022,05/13/2021 Family History Medical History Relation Comments Prostate cancer Father Heart attack Mother Hypertension Mother Rheumatoid arthritis Mother Severe, wit h multiple complications Alcohol abuse Son not in recovery Drug abuse Son Relation Status Comments Father (Age 85) Mother (Age 80) Son Alive Social History Tobacco Use Types Packs/Day Years Used Date Smoking Tobacco: Former Cigarettes 0.3 5 1 10/03/1971 - 08/02/1977 Smokeless Tobacco: Never Tobacco Cessation:Counseling Given: Not Answered Alcohol Use Standard Drinks/Week Comments Yes 3 (1 standard drink = 0.6 oz pur e alcohol) 3 weekly Child or Family Care Answer Date Record ed Do you have problems with on e of the following making it difficult for you to work, study, or receive health care? I choose not to answer 12/03/2024 Education Answer Date Recorded Are you interested in help w ith more adult education (for example, completing high school, GED, job training, learning the [place] language, technical skills, or developing parenting skills)? I choose not to answer 12/03/2024 Are you concerned about learning? Not on file 12/03/2024 No 12/03/2024 Yes 12/03/2024 Food Answer Date Recorded Within the past 6 months we worried whether our food would run out before we got money to buy more. I choose not to answer 12/03/2024 Within the past 6 months the food we bought just didn't last and we didn't have enough money to get more. I choose not to answer 12/03/2024 Residential Stability Answer Date Recor ded What is your housing situation today? I choose n ot to answer 12/03/2024 How many times have you move d in the past 12 months? I choose not to answer 12/03/2024 Paying for Meds Answer Date Recorded Do you have trouble paying for medicines? I lexis se not to answer 12/03/2024 Paying Utility Bills Answer Date Record ed Do you have trouble paying y our heating or electricity bill? I choose not to answer 12/03/2024 Transportation Answer Date Recorded Has the lack of transportati on kept you from medical appointments or from getting medications? I choose not to answer 12/03/2024 Unemployment Answer Date Recorded Are you currently unemployed or working on a part-time or temporary basis, and looking for work? No 07/12/2022 Digital Access Answer Date Recorded Yes 12/03/2024 Yes 12/03/2024 Do you have reliable internet access at home? Ye s 12/03/2024 Do you have a device (e.g., phone, tablet, computer) with a working camera? No 12/03/2024 Intimate Partner Violence Answer Date R ecorded Are you denied basic needs s uch as food, clothing, or medical care? No 12/03/2024 In the past 12 months have y ou been in a relationship with a person who hurts, threatens, or tries to control you? Deferred 12/03/2024 Are you denied basic needs s uch as food, clothing, or medical care? No 12/03/2024 In the past 12 months have y ou been in a relationship with a person who hurts, threatens, or tries to control you? 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 Not on file Not on file Last Filed Vital Signs Vital Sign Reading Time Taken Comments Blood Pressure 122/70 06/03/2025 10:30 AM EDT Pulse 70 06/03/2025 10:30 AM EDT Temperature 36.3 C (97.3 F) 06/03/2025 10:30 AM EDT Respiratory Rate 16 09/19/2024 11:24 AM EST Oxygen Saturation 95% 06/03/2025 10:30 AM EDT Inhaled Oxygen Concentration - - Weight 72.1 kg (159 lb) 06/03/2025 10:30 AM EDT Height 180.3 cm (5' 11 ) 06/03/2025 10:30 AM EDT Body Mass Index 22.18 06/03/2025 10:30 AM EDT Plan of Treatment Upcoming Encounters Date Type Department Care Team (Late st Contact Info) Description 08/05/2025 10:40 AM EST Office Visit [facility] [address] [place] [address] [address] [place] [address] Jovana Pearson MD [address] [facility]. [address] [place] [id number] 2025 10:45 AM EST Appointment [facility] [address] [place] [address] Gera Harrington MD 22 [facility], [address] [place] [address] 08/14/2025 11:30 AM EST Office Visit [facility] [address] [place] [address] 3rd Floor, [address] [place] [address] Woo Garcia, [address] [address] 01/27/2026 10:45 AM EDT Office Visit [facility] [address] [place] [address] Isaías Guidry MD 10 [facility] [address] [place] [address] 02/10/2026 1:40 PM EDT Office Visit [facility] [address] [place] [address] [address] [place] [address] Jovana Pearson MD 15 [facility]. [address] [place] [address] [phone] (work) Health Maintenance Due Date Last Done Comments COLOGUARD 2004 FIT TEST 2004 FOBT 2004 SIGMOIDOSCOPY 2004 VIRTUAL COLONOSCOPY 2004 RSV VACCINE (1 - Risk 50-74 years 1-dose series) 2009 ABDOMINAL AORTIC ANEURYSM (AAA) SCREENING 2024 05/11/2024, 05/11/2024, 04/08/2020 INFLUENZA VACCINE (#1) 2025 , 06/06/2023, 06/23/2022, Additional history exists COVID-19 VACCINE (2024- season) 2025 03/25/2025, 06/09/2024, 07/13/2023, Additional history exists BLOOD PRESSURE 12/02/2025 06/03/2025 DEPRESSION SCREENING 02/04/2026 02/04/2025, 02/05/20 25 LIPID PANEL 12/03/2029 12/03/2024, 04/29, 07/12/2022, Additional history exists Adult Td,Tdap Booster 08/03/2033 08/03/2023 , 11/30/2012, 08/29/1998 COLONOSCOPY 09/19/2034 09/19/2024 COLORECTAL CANCER SCREENING 09/19/2034 HEPATITIS C SCREENING Completed 02/23/2018, 018 HIV ONE-TIME SCREENING (18-65 YEARS) Completed 05/13/2021 ZOSTER VACCINES Completed 01/07/2022, 05/13/2021 PNEUMOCOCCAL VACCINES (50+ years) Completed 12/03/2024, 06/29/2018, 05/22/2013 SMOKING STATUS SCREENING (Once After 26 Yrs) Completed 06/03/2025 HEPATITIS A VACCINES Aged Out No long er eligible based on patient's age to complete this topic HIB VACCINES Aged Out No longer eligi ble based on patient's age to complete this topic MENINGOCOCCAL VACCINES (ACWY) Aged Out No longer eligible based on patient's age to complete this topic MENINGOCOCCAL VACCINES (B) Aged Out N o longer eligible based on patient's age to complete this topic Medical Devices Implanted Type Area Aligner Device Identifier Shelf Expiration Date Model / Serial / Lot Stent Vascular [id number] m 6f Otw Closed End Braided Self Expanding W/Out Radiopaque Marker Periph Supera Nitinol Latex-Free Implantable Sterile Disp - [id number] Implanted:Qty: 1 on 06/15/2018 by Gera Harrington MD at [facility] Stent SWEET VASCULAR [id number] 03/28/2020 S-55- 150-1 20-P6 / / Stent Everflex Entrust 5fr .035in [id number] 120cm - [id number] Implanted:Qty: 1 on 07/27/2018 by Gera Harrington MD at [facility] Stent [employer] [id number] [id number] / / Description:right SFA Stent Supera 6fr 6mm 100mm 120cm .014in Otw Vascular Peripheral Nitinol Self Expanding Closed End Braided - [id number] Implanted:Qty: 1 on 02/10/2023 by Gera Harrington MD at [facility] Stent [employer] [id number] 06/28/2024 [id number]-60-100-1 20-P6 / / Spine Procedures Procedure Name Priority Date/Time Associated Diagnosis Comments US LOWER EXTREMITY ARTERIES DUPLEX COMPLETE (BILATERAL) Routine 07/05/2025 11:02 AM EST PAD (peripheral artery disease) Primary hypertension US LOWER EXTREMITY ARTERIES (CHRISTOPHER) PHYSIO COMPLETE BILAT Routine 07/05/2025 11:02 AM EST PAD (peripheral artery disease) Primary hypertension LIPID PANEL Routine 12/03/2024 2:15 PM EDT Primary hypertension ENDOSCOPY, COLON 09/19/2024 9:[address] ANGIO ABDOMEN/PELVIS WITH AND WITHOUT CONTRAST Routine 05/11/2024 1:29 PM EDT HEPATITIS C ANTIBODY, QUALITATIVE Routine 02/23/2018 12:05 PM EDT Claudication from Last 3 Months or Most Recently Relevant to Health Maintenance Results * US Lower Extremity Arteries Duplex Complete (Bilateral) (07/05/2025 11:02 AM EST) Prox PEDIATRIC CLINICAL NURSE SPECIALIST PSV 64 cm/sec Prox SFA PSV 144 cm/sec Mid SFA PSV 137 cm/sec Dist SFA PSV 101 cm/sec PFA PSV 68 cm/sec Prox Popliteal PSV 134 cm/sec Mid SFA PSV 125 cm/sec Dist SFA PSV 58 cm/sec PFA PSV 207 cm/sec PEDIATRIC CLINICAL NURSE SPECIALIST PSV 227 cm/sec Dist EIA PSV 84 cm/sec Dist Anterior Tibial PSV 37 cm/sec Dist Posterior Tibial PSV 46 cm/sec Dist Anterior Tibial PSV 31 cm/sec Dist Posterior Tibial PSV 55 cm/sec Anatomical Region Laterality Modality Ultrasound Narrative 07/06/2025 7:26 AM EST Findings: Impression: Right lower arterial: Right proximal femoral arterial stenosis 20-49% with complex calcific plaque. Right mid femoral arterial stenosis 20-49%, with complex calcific plaque. Right popliteal stent is patent with no evidence of restenosis Left lower arterial: Left distal common femoral artery stenosis 50 to 69% % with moderate to severe calcific plaque. The common femoral stenosis on the left is closer to 50% Left mid to distal femoral stent is patent with no evidence of restenosis. Lower Arterial Duplex Left SUPERFICIAL FEMORAL ; Left mid femoral artery stent: 86, 125, 110, 54cm/s. Mid Doppler waveform: biphasic ANTERIOR TIBIAL Distal Doppler waveform: biphasic POSTERIOR TIBIAL Distal Doppler waveform: biphasic Lower Arterial Duplex Right EXTERNAL ILIAC Distal Doppler waveform: biphasic COMMON FEMORAL Proximal Doppler waveform: biphasic SUPERFICIAL FEMORAL ; Right proximal femoral artery velocities: 114, 160,144*cm/s Proximal Doppler waveform: biphasic ; Right mid femoral artery velocities: 97, *137cm/s. Mid Doppler waveform: biphasic Distal Doppler waveform: biphasic POPLITEAL ARTERY ; Right popliteal stent velocities: proximal 134, mid 166, distal 71cm/s. ANTERIOR TIBIAL Distal Doppler waveform: biphasic POSTERIOR TIBIAL Distal Doppler waveform: biphasic Inguinal Vasculature Left COMMON FEMORAL ARTERY 50-75% stenosed; Left common femoral artery stenosis: 155, *227, 232cm/s. Moderate to severe calcific plaque. Doppler waveform: biphasic PROFUNDA FEMORAL ARTERY 50-75% stenosed Inguinal Vasculature Right PROFUNDA FEMORAL ARTERY Doppler waveform: biphasic Introductory Comments Techniques used for this study included: color flow Doppler and spectral waveform Doppler. us Gera Harrington MD CV US VASCULAR Final Resul t * US Lower Extremity Arteries (CHRISTOPHER) Physio Complete Bilat (07/05/2025 11:02 AM EST) Arm 150 mmHg Posterior Tibial 150 mmHg Posterior Tibial Index 1.00 Posterior Tibial 142 mmHg Posterior Tibial Index 0.95 Anatomical Region Laterality Modality Ultrasound Narrative 07/06/2025 7:29 AM EST Impression: Right Side: Ankle/Brachial index on the right side is 1.0 normal indice with a triphasic Doppler waveform. Left Side: Ankle/Brachial index on the left side is 0.94 borderline indice with a triphasic Doppler waveform. Compared to previous exam dated 04/24/2024, no significant change. Introductory Comments Techniques used for this study included: spectral waveform Doppler. us Gera Harrington MD CV US VASCULAR Final Resul t * (ABNORMAL) Lipid panel (12/03/2024 2:15 PM EDT) HDL 64 mg/dL [facility] Comment: Interpretation <40 mg/dL: Low HDL cholesterol (major risk factor for CHD) Greater than or equal to 60 mg/dL: High HDL cholesterol ( negative risk factor for CHD) HDL - cholesterol is affected by a number of factors, e.g. smoking, excerise, hormones, sex and age. CHOLESTEROL 135 0 - 240 mg/dL [facility] TRIGLYCERIDES 38 30 - 160 mg/dL [facility] LDL 63 50 - 129 mg/dL [facility] Comment: LDL levels in terms of risk for coronary heart disease: <100 mg/dL: Optimal 100-129 mg/dL: Near or above optimal 130-159 mg/dL: Borderline high 160-189 mg/dL: High >190 mg/dL: Very High CARDIAC RISK RATIO 2.1(L) 3.4 - 5.0 C [facility] Blood 12/03/2024 2:15 PM EDT 12/03/2024 2:16 PM EDT us Jovana Pearson MD LAB BLOOD BKR ORDERABLES Fin al Result [address] [address] * ENDOSCOPY, COLON (09/19/2024 9:57 AM EST) Narrative Transcriptions Andreia Cooney MD - 09/19/2024 9:57 AM EST [facility] Patient Name: Isaías Rodriguez Attending MD:: ANDREIA COONEY MD, Procedure Date: 09/19/2024 9:57 AM Date of : 1960 Age: 64 Admit Type: Outpatient Gender: Male Room: [place] [address] Referring MD: Jovana Pearson Exam Type: Colonoscopy Indications: Screening for colorectal malignant neoplasm Medications: Monitored Anesthesia Care Procedure: Informed consent was obtained from the patientafter discussion of the indications, limitations, alternatives, benefits, and risks of the procedure. Risks specifically discussed include but are not limited to medication reactions, missed lesions, bleeding, perforation, or the need for emergent surgery. Throughout the procedure, the patient's blood pressure, pulse, end-tidal CO2, and oxygensaturations were monitored continuously. The Olympus adult variable colonoscope CF-CX626K #7 was introduced through the anus and advanced to the terminal ileum, with identification of theappendiceal orifice and IC valve. The patient tolerated the procedure well. The colonoscopy was technically difficult and complex due to inadequate bowel prep. Successful completion of the procedure was aided by lavage. The quality of the bowel preparation was adequate after copious irrigation. Complications: No immediate complications. Estimated blood loss:None. Findings: The terminal ileum appeared normal. This wasbiopsied with a cold forceps for histology. Examination of the right colon was repeated in retroflexion and again in NBI. Retroflexion wasalso performed in the rectum. Multiple diverticula were found in the sigmoidcolon. External and internal hemorrhoids were found during retroflexion. The hemorrhoids were moderate. The exam was otherwise without abnormality. Biopsies for histology were taken with a coldforceps from the entire colon for evaluation of microscopic colitis. Impression: - The examined portion of the ileum was normal. Biopsied. - Diverticulosis in the sigmoid colon. - External and internal hemorrhoids. - The examination was otherwise normal. - Biopsies were taken with a cold forceps from the entire colon for evaluation of microscopiccolitis. Recommendation: - Patient has a contact number available for emergencies. The signs and symptoms of potential delayed complications were discussed with thepatient. Return to normal activities tomorrow. Written discharge instructions were provided to thepatient. - Await pathology results. - Return to GI office as previously scheduled. - Repeat colonoscopy in 10 years for screening purposes and consider alternative bowel prep. Andreia Cooney ANDREIA COONEY MD 09/19/2024 10:53:18 AM This report has been signed electronically. Number of Addenda: 0 Note Initiated On: 09/19/2024 9:57 AM Procedure Code(s): --- Professional --- 21322, Colonoscopy, flexible; with biopsy, single or multiple --- Technical --- 69672, Colonoscopy, flexible; with biopsy, single or multiple CPT copyright 2021 [employer] [employer]. All rights reserved. The codes documented in this report are preliminary and upon reimbursement liaison reviewmay be revised to meet current compliance requirements. Procedure Date: 09/19/2024 9:57:[address] [place] [address] [place] Jovana Pearson MD GI PROCEDURE ORDERABLES Loretta [email or web address] Result * CT ANGIO ABDOMEN/PELVIS WITH AND WITHOUT CONTRAST (05/11/2024 1:29 PM EDT) Anatomical Region Laterality Modality Abdomen, Abdominal Vasculature C omputed Tomography 05/11/2024 2:45 PM EDT Impressions 05/11/2024 3:41 PM EDT 1. No active GI bleed. 2. Mesenteric vessels are patent. 3. Inflamed descending and sigmoid colon, likely infectious/inflammatory colitis. Can be correlated however correlated with levels of lactate as ischemic colitis in the differential. 4. Diffuse circumferential bladder wall thickening may be related to cystitis versus chronic outlet obstruction. Recommend correlation with urinalysis. 5. Moderate to severe aorta aortoiliac atherosclerosis. Severe atherosclerosis at the bifurcation of the bilateral common femoral arteries. A clinically significant result was initiated on 05/11/2024 3:12 PM, Message ID [id number]. A clinically significant result was initiated on 05/11/2024 3:41 PM, Message ID [id number]. ATTESTATION: I, Lucy Morales as teaching physician, have reviewed the images for this case and if necessary edited the report originally created by Andrae Arias MD. Narrative 05/11/2024 3:[address] ANGIO ABDOMEN/PELVIS WITH AND WITHOUT CONTRAST Referring clinician's provided indication for this examination in Epic: * LLQ abdominal pain; lower GI bleed TECHNIQUE: Multidetector-row CTA of the abdomen and pelvis was performed with intravenous contrast using tailored dose modulation techniques. Images were reconstructed in the axial, coronal, and sagittal planes, including angiographic image post-processing. COMPARISON: None VASCULAR FINDINGS: No intraluminal contrast extravasation to indicate active GI bleeding. No aortic dissection, aneurysm, or occlusion. Moderate to severe aorta aortoiliac atherosclerosis. Severe atherosclerosis at the bifurcation of the bilateral common femoral arteries. The celiac axis, SMA and MAI are patent. Renal arteries are patent bilaterally. There is no venous thrombosis. NON VASCULAR FINDINGS: Lung bases: Minimal bibasilar subsegmental atelectasis. Centrilobular emphysema. 2 mm right lower lobe nodule. Liver: Hepatic dome calcification. Biliary: Normal gallbladder. No biliary ductal dilatation. Spleen: No splenomegaly or focal lesions. Pancreas: No ductal dilatation. Adrenal Glands: No nodules. Kidneys/Ureters: Tiny right nonobstructing stone. Left interpolar exophytic, minimally complex cyst with thin internal septation. No hydronephrosis. Bowel: Long segment of edematous bowel wall thickening involving the descending and sigmoid colon with mild pericolonic fat stranding and trace fluid in the left paracolic gutter. Several diverticula involving the sigmoid colon. No bowel dilation. Stool filled cecum with desiccated stool extending into the terminal ileum. Normal appendix. Peritoneum/Retroperitoneum: Trace pelvic free fluid. Lymph Nodes: No lymphadenopathy. Pelvic Organs/Bladder: Coarse calcifications in the prostate, which is mildly enlarged. Diffuse circumferential wall thickening of the bladder. Bones/Soft Tissues: Stable grade 2 anterolisthesis of L5 on S1 status post L4-L5 posterior fusion with bilateral pedicle screws and bridging rods and ankylosis across the posterior elements. Background multilevel degenerative changes of the spine, most pronounced at L1- L2, L2-L3, and L3-L4. Prior bone graft harvesting in the posterior left iliac bone. Lacelike lesion in the left iliac bone with some subtle sclerosis could represent hemangioma. Fatty atrophy of the lumbar paraspinal muscles. Procedure Note Didi Painter MD - 05/11/2024 CT ANGIO ABDOMEN/PELVIS WITH AND WITHOUT CONTRAST Referring clinician's provided indication for this examination in Epic: *LLQ abdominal pain; lower GI bleed TECHNIQUE: Multidetector-row CTA of the abdomen and pelvis was performedwith intravenous contrast using tailored dose modulation techniques.Images were reconstructed in the axial, coronal, and sagittal planes,including angiographic image post-processing. COMPARISON: None VASCULAR FINDINGS: No intraluminal contrast extravasation to indicate active GI bleeding. No aortic dissection, aneurysm, or occlusion. Moderate to severe aorta aortoiliac atherosclerosis. Severeatherosclerosis at the bifurcation of the bilateral common femoralarteries. The celiac axis, SMA and MAI are patent. Renal arteries are patentbilaterally. There is no venous thrombosis. NON VASCULAR FINDINGS: Lung bases: Minimal bibasilar subsegmental atelectasis. Centrilobularemphysema. 2 mm right lower lobe nodule. Liver: Hepatic dome calcification. Biliary: Normal gallbladder. No biliary ductal dilatation. Spleen: No splenomegaly or focal lesions. Pancreas: No ductal dilatation. Adrenal Glands: No nodules. Kidneys/Ureters: Tiny right nonobstructing stone. Left interpolarexophytic, minimally complex cyst with thin internal septation. Nohydronephrosis. Bowel: Long segment of edematous bowel wall thickening involving thedescending and sigmoid colon with mild pericolonic fat stranding and tracefluid in the left paracolic gutter. Several diverticula involving thesigmoid colon. No bowel dilation. Stool filled cecum with desiccated stoolextending into the terminal ileum. Normal appendix. Peritoneum/Retroperitoneum: Trace pelvic free fluid. Lymph Nodes: No lymphadenopathy. Pelvic Organs/Bladder: Coarse calcifications in the prostate, which ismildly enlarged. Diffuse circumferential wall thickening of the bladder. Bones/Soft Tissues: Stable grade 2 anterolisthesis of L5 on S1 status post L4-L5 posteriorfusion with bilateral pedicle screws and bridging rods and ankylosisacross the posterior elements. Background multilevel degenerative changes of the spine, most pronouncedat L1- L2, L2-L3, and L3-L4. Prior bone graft harvesting in the posterior left iliac bone. Lacelikelesion in the left iliac bone with some subtle sclerosis could representhemangioma. Fatty atrophy of the lumbar paraspinal muscles. IMPRESSION: 1. No active GI bleed. 2. Mesenteric vessels are patent. 3. Inflamed descending and sigmoid colon, likely infectious/inflammatorycolitis. Can be correlated however correlated with levels of lactate asischemic colitis in the differential. 4. Diffuse circumferential bladder wall thickening may be related tocystitis versus chronic outlet obstruction. Recommend correlation withurinalysis. 5. Moderate to severe aorta aortoiliac atherosclerosis. Severeatherosclerosis at the bifurcation of the bilateral common femoralarteries. A clinically significant result was initiated on 05/11/2024 3:12 PM,Message ID [id number]. A clinically significant result was initiated on 05/11/2024 3:41 PM,Message ID [id number]. ATTESTATION: Lucy Hancock as teaching physician, havereviewed the images for this case and if necessary edited the reportoriginally created by Andrae Arias MD. us Danielle Amezquita MD IMG CT ABD/PELVIS Final R esult * Hepatitis C antibody, qualitative (02/23/2018 12:05 PM EDT) HCV Negative Negative [facility] Comment: This is a screening test and should be confirmed with molecular testing Blood 02/23/2018 12:0 5 PM EDT 02/23/2018 12:09 PM EDT us Eduin Paris MD LAB BLOOD BKR ORDERABLES F inal Result Performing Organization Address City/State/[facility] Co de Phone Number [facility] [address] [place] [address] from Last 3 Months or Most Recently Relevant to Health Maintenance Insurance [facility] MEDICARE REPLACEMENT [facility] MEDICARE REPLACEMENT [facility] MEDICARE REPLACEMENT [facility] MEDICARE REPLACEMENT [facility] MEDICARE REPLACEMENT [place] [id number] [facility] MEDICARE REPLACEMENT [place] [id number] [employer] Care Teams Bunk Assembler Relationship Specialty Start Date End Date Jovana Pearson MD [address] [place] [address] [email or web address] PCP - General Family Medicine 01/02/21 Additional Source Comments The information contained in this document represents components of the legal health record. It is not the complete legal health record.[facility]
[2025-07-22 08:15] VITALS: BMI 23.1
--- NOTE | 2025-07-22 08:15 | A.OFFVIS_ITS ---
Vital Signs 07/22/25 08:15 Height 6 ft Weight 170 lb BMI 23.1 Intake Visit Reasons: Ingrown Toenail of both feet Intake Note: Isaías is a 64 year old male who presents today as a new patient for an evaluation of his bilateral ingrowns of the hallux. Patient reports this has been going on for about 2 years and he has not tried any treatment at this time. He states his left hallux is currently more painful and the pain is located on the medial border for both toes. Allergies Seasonal Allergies Allergy (Verified 07/22/25 08:17) stuffy nose HPI Comments Details: The patient is a 64-year-old male with a PMH as seen below presenting with concerns regarding ingrown toenails to B/L halluces. The patient reports experiencing pain in the halluces for several years, with the pain being intermittent and exacerbated by pressure. Patient states the left side hurts mo re than the right. There is no history of purulence or bleeding from the toes. The patient also reports a history of fungal nail infection, characterized by changes in nail color and thickness, and flakiness under the nail. The patient has not received any prior treatment for these conditions. He denies any recent pedal injuries. Denies any other pedal concerns. [facility] Medical History (Updated 07/22/25 @ 08:47 by Erika Ramírez DPM) Nail disorder Tinea unguium Pain in toes of both feet Ingrowing nail Review of Systems Const Details: - Musculoskeletal: Reports intermittent pain to B/L halluces in the areas of the ingrown toenails. - Integumentary: Reports changes in nail color and thickness, and flakiness under the nail to B/L halluces. All systems reviewed & are unremarkable except as noted in HPI and below Physical Exam Vital Signs: BMI result Body Mass Index 23.1 Extrem Other: B/L LE Focused Physical Exam: Derm: Increased incurvation to the medial borders of the hallucal nails consistent with an ingrown. Mild edema noted to the medial nail border of the halluces. No active bleeding, purulence, or drainage noted. Toenails x10 noted to be thickened, dystrophic, and discolored with subungual debris (worse to B/L hallucal nails). Skin supple and turgor WNL. No open lesions, abrasions, or wounds noted. No maceration or hyperkeratotic areas noted. No clinical signs of infection. Vasc: DP/PT pulses palpable. CFT < 3 secs. Temp gradient warm to warm. Pedal hair present. No varicosities noted. Neuro: Protective sensations grossly intact. MSK: Pain on palpation to the medial nail borders of B/L halluces, worse to the left. No crepitus or fluctuance noted. ROM of the forefoot, hindfoot, and ankles WNL. Mildly antalgic gait noted unassisted. Hammertoes/claw toes noted B/L. Office Procedures AMB Debridement/Avulsion Podia Details: Procedure:Left hallux partial nail avulsion of the medial border Cleansed left hallux with an alcohol swab and injected 10cc of 2%lidocaine plain in a hallux block fashion. Next applied a tourniquet to the left hallux and then cleansed the left hallux with Betadine. Attention was drawn to the medial border of the left hallux and a [place] was utilized to free the offending nail border from the nail bed. Next an Bengali anvil was utilized to trim and cut the offending nail border and a hemostat was used to remove the offending nail border completely. A curette was used to ensure all spicules of the nail were removed from the nail bed. Triple antibiotic ointment, 2x2 gauze, and Coban was then applied to the left hallux. Procedure was done with no incidents. Provided patient with aftercare instructions. [id number] Partial/Total nail avulsion (1 nail) Procedure code (CPT) selection complete Office Meds lidocaine HCl 10 mg/mL (1 %) injection solution Performing Provider: Erika Ramírez DPM [place] [facility] [place] Administered by: Erika Ramírez DPM on 07/22/25 12:07 Dose Route Admin Location Dispensed Lot Number Expiration Date [facility] Contracts Administrator 10 mL subcut 10 mL [id number] Total Dispensed Waste 10 mL 0 % Comments: Lidocaine 2% used Triple Antibiotic 3.5 mg-400 unit-5,000 unit topical ointment packet Performing Provider: Erika Ramírez DPM [place] [facility] [facility] Administered by: Erika Ramírez DPM on 07/22/25 12:07 Dose Route Admin Location Dispensed Lot Number Expiration Date [facility] Contracts Administrator 1 appl topical 1 appl [id number] PADAGIS povidone-iodine 10 % topical swab Performing Provider: Erika Ramírez DPM [place]forming [place] [facility] [facility] Administered by: Erika Ramírez DPM on 07/22/25 12:07 Dose Route Admin Location Dispensed Lot Number Expiration Date [facility] Contracts Administrator 1 appl topical 1 appl [id number] MEDLINE IND [place]. ethyl chloride 100 % topical spray Performing Provider: Erika Ramírez DPM [place]forming [place] [facility] [place] [facility] Administered by: Erika Ramírez DPM on 07/22/25 12:07 Dose Route Admin Location Dispensed Lot Number Expiration Date [facility] Contracts Administrator 1 appl topical 116 mL [id number] EQUIP Advantage. Assessment & Plan Assessment & Plan (1) Nail disorder: Code(s): L60.9 - Nail disorder, unspecified Category: Medical (2) Tinea unguium: Code(s): B35.1 - Tinea unguium Category: Medical (3) Pain in toes of both feet: Code(s): M79.674 - Pain in right toe(s); M79.675 - Pain in left toe(s) Category: Medical (4) Ingrowing nail: Code(s): L60.0 - Ingrowing nail Category: Medical Plan Patient was informed and verbally consented to the use of an ambient scribe for clinic note documentation during this visit. I discussed with the patient the procedure of partial nail avulsion for the left hallux medial border ingrown toenail. We also talked about the aftercare, which involves keeping a bandage on for 24 hours and soaking the foot in Epsom salt and warm water starting the next day. The patient was informed about the potential fungal nail infection and the treatment options available, including topical and oral medications, but advised to delay treatment until the ingrown toenail is healed. - Performed partial nail avulsion on the left hallux medial border to address the ingrown toenail. - Provided patient with aftercare instructions form. - Patient is to avoid tight fitting shoes, wear supportive shoe gear, and is to avoid barefoot walking. - Monitor feet for signs of infection. - Delay treatment for tinea unguium until after the ingrown toenail is resolved. RTC in 2 weeks. Will perform right hallux PNA at next appt. Orders: Orders AMB Debridement/Avulsion Podiatry Today B35.1 - Tinea unguium, L60.0 - Ingrowing nail, L60.9 - Nail disorder, unspecified, M79.674 - Pain in right toe(s), M79.675 - Pain in left toe(s) Coding Level of Care Code New Pt Level 4 (66297) Diagnoses Nail disorder L60.9 Tinea unguium B35.1 Pain in toes of both feet M79.674; M79.675 Ingrowing nail L60.0 CPT Codes Skin Debridement - CPT: 04868 Partial/Total nail avulsion (1 nail) ([id number]) Time Spent (min) 60 Comment 15 mins for procedure
--- OUTSIDE RECORDS SUMMARY | 2025-07-22 08:15 | XMS_ITS | Encounter Summary ---
Author Organization [facility] Address [address] [place] [address] Phone Care Team Providers Care Gas Specialist Name Role Phone Jovana Pearson MD Primary Care Provider Encounter Details Date Type Department Care Team (Late st Contact Info) Description 09/19/2024 Procedure Pass [facility] Admitting Dept Virtual Department [address] [place] [address] Social History Tobacco Use Types Packs/Day Years [...] to work, study, or receive health care? No 08/03/2023 Education Answer Date Recorded Are you interested in help w ith more adult education (for example, completing high school, GED, job training, learning the [place] language, technical skills, or developing parenting skills)? No 08/03/2023 Are you concerned about learning? Not on file 08/03/2023 No 08/03/2023 Yes 08/03/2023 Food Answer Date Recorded Within the past 6 months we worried whether our food would run out before we got money to buy more. Never True 07/12/2022 Within the past 6 months the food we bought just didn't last and we didn't have enough money to get more. Never True 11/14/202 2 Residential Stability Answer Date Recor ded What is your housing situation today? I have clarissa johnson 08/03/2023 How many times have you move d in the past 12 months? Zero (I did not move) 08/03/2023 Paying for Meds Answer Date Recorded Do you have trouble paying for medicines? No 08/03/2023 Paying Utility Bills Answer Date Record ed Do you have trouble paying your heating or elect ricity bill? No 08/03/2023 Transportation Answer Date Recorded Has the lack of transportati on kept you from medical appointments or from getting medications? No 08/03/2023 Unemployment Answer Date Recorded Are you currently unemployed or working on a part-time or temporary basis, and looking for work? No 07/12/2022 Digital Access Answer Date Recorded Yes 08/03/2023 No 08/03/2023 Do you have reliable internet access at home? No 08/03/2023 Do you have a device (e.g., phone, tablet, computer) with a working camera? No 08/03/2023 Intimate Partner Violence Answer Date R ecorded Are you denied basic needs s uch as food, clothing, or medical care? No 09/19/2024 In the past 12 months have y ou been in a relationship with a person who hurts, threatens, or tries to control you? No 09/19/2024 Are you denied basic needs s uch as food, clothing, or medical care? No 09/19/2024 In the past 12 months have y ou been in a relationship with a person who hurts, threatens, or tries to control you? 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 [address] [place] [address] Jovana Pearson MD [address] [address] 2025 10:45 AM EST Appointment [facility] [address] 3rd [place] [address] Gera Harrington MD 22 [facility], [address] [place] [address] 08/14/2025 11:30 AM EST Office Visit [facility] [address] [place] [address] 3rd [facility], [address] [place] [address] Woo Garcia, [address] [address] 01/27/2026 10:45 AM EDT Office Visit [facility] [address] [place] [address] Isaías Guidry MD [address] [place] [address] 02/10/2026 1:40 PM EDT Office Visit [facility] [address] [facility] [address] [place] [address] Jovana Pearson MD [address] [address] documented as of this encounter Visit Diagnoses Not on filedocumented in this encounter Additional Health Concerns Assessment Noted Time PHQ-2 Depression Total Score: 2 08/03/20 23 10:20 AM EST documented as of this encounter Care Teams Gas Specialist Relationship Specialty Start Date End Date Jovana Pearson MD [address] [address] [email or web address] PCP - General Family Medicine 01/02/21 documented as of this encounter Additional Source Comments The information contained in this document represents components of the legal health record. It is not the complete legal health record.[facility]
--- OUTSIDE RECORDS SUMMARY | 2025-07-22 08:15 | XMS_ITS | Encounter Summary ---
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 [address] [place] [address] Jovana Pearson MD 15 [facility] [address] [place] [address] 2025 10:45 AM EST Appointment [facility] [place] [address] [place] [address] Gera Harrington MD 22 [facility], [address] [place] [address] 08/14/2025 11:30 AM EST Office Visit [facility] [address] [facility] 3rd [facility], [address] [place] [address] Woo Garcia, [address] [address] 01/27/2026 10:45 AM EDT Office Visit [facility] [address] [place] [address] Isaías Guidry MD [address] [place] [address] 02/10/2026 1:40 PM EDT Office Visit [facility] [address] [facility] [address] [place] [address] Jovana Pearson MD 15 [facility] [address] [place] [address] documented as of this encounter Visit Diagnoses Not on filedocumented in this encounter Additional Health Concerns Infection Onset Date Last Indicated Resolved Time CoV-Risk 01/09/2021 01/09/2021 01/19/2021 1:23 AM EDT CoV-Risk Comment:Per Ambulatory Triage Form 07/27/2021 07/28/202107/28 7:05 PM EST COVID-19 07/28/2021 07/28/2021 08/18/2021 1:21 AM EST CoV-Risk 12/02/2022 12/02/2022 12/13/2022 1:21 AM EDT Assessment Noted Time PHQ-2 Depression Total Score: 1 06/27/20 18 11:38 AM EDT documented as of this encounter Care Teams Account Representative Relationship Specialty Start Date End Date Radha Boles DO [address] [place] [address] [email or web address] PCP - General 09/01/18 01/01/21 Jovana Pearson MD [address] [place] [address] [email or web address] PCP - General Family Medicine 01/02/21 documented as of this encounter Additional Source Comments The information contained in this document represents components of the legal health record. It is not the complete legal health record.[facility]
--- OUTSIDE RECORDS SUMMARY | 2025-07-22 08:15 | XMS_ITS | Encounter Summary ---
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 [address] [place] [address] Jovana Pearson MD 15 [facility] [address] [place] [address] 2025 10:45 AM EST Appointment [facility] [place] [address] [place] [address] Gera Harrington MD 22 [facility], [address] [place] [address] 08/14/2025 11:30 AM EST Office Visit [facility] [address] [facility] 3rd [facility], [address] [place] [address] Woo Garcia, [address] [place] [address] [address] 01/27/2026 10:45 AM EDT Office Visit [facility] 10 [place] [address] Isaías Guidry MD [address] [place] [address] 02/10/2026 1:40 PM EDT Office Visit [facility] [place] [facility] [address] [facility] [address] [place] [address] Jovana Pearson MD 15 [facility]. [address] [place] [address] documented as of this encounter Visit Diagnoses [...] documented as of this encounter Care Teams Branch Sales And Service Representative Relationship Specialty Start Date End Date Radha Boles DO [address] [place] [address] [email or web address] PCP - General 09/01/18 01/01/21 Jovana Pearson MD [address] [place] [address] [email or web address] PCP - General Family Medicine 01/02/21 documented as of this encounter Additional Source Comments The information contained in this document represents components of the legal health record. It is not the complete legal health record.[facility]
--- OUTSIDE RECORDS SUMMARY | 2025-07-22 08:15 | XMS_ITS | Encounter Summary ---
Author Organization [facility] Address [address] [place] [address] Phone Care Team Providers Care User Interface Designer Name Role Phone Jovana Pearson MD Primary Care Provider Encounter Details Date Type Department Care Team (Late st Contact Info) Description 10/04/2022 Procedure Pass [facility], [address] [place] [address] Social History Tobacco Use Types Packs/Day Years Used Date Smoking Tobacco: Former Cigarettes 0.3 5 1 10/03/1971 - 08/02/1977 Smokeless Tobacco: Never Alcohol Use Standard Drinks/Week Comments Not Currently 3 (1 standard drink = 0.6 oz pure alcohol) was up to 2-3/night in , now 1-2 drinks 2-3/week Child or Family Care Answer Date Record ed Do you have problems with on e of the following making it difficult for you to work, study, or receive health care? No 07/12/2022 Education Answer Date Recorded Are you interested in help w ith more adult education (for example, completing high school, GED, job training, learning the Swedish language, technical skills, or developing parenting skills)? No 07/12/2022 Food Answer Date Recorded Within the past 6 months we worried whether our food would run out before we got money to buy more. Never True 07/12/2022 Within the past 6 months the food we bought just didn't last and we didn't have enough money to get more. Never True Residential Stability Answer Date Recor ded What is your housing situation today? I have clarissa johnson 07/12/2022 How many times have you move d in the past 12 months? Zero (I did not move) 07/12/2022 Paying for Meds Answer Date Recorded Do you have trouble paying for medicines? No 07/12/2022 Paying Utility Bills Answer Date Record ed Do you have trouble paying your heating or elect ricity bill? No 07/12/2022 Transportation Answer Date Recorded Has the lack of transportati on kept you from medical appointments or from getting medications? No 07/12/2022 Unemployment Answer Date Recorded Are you currently unemployed or working on a part-time or temporary basis, and looking for work? 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 [place] [address] 2025 10:45 AM EST Appointment [facility] [address] 3rd [place] [address] Gera Harrington MD 22 [facility], [address] [place] [address] 08/14/2025 11:30 AM EST Office Visit [facility] [address] [facility] 3rd Floor, [address] [place] [address] Woo Garcia, FURNITURE MECHANIC [address] [place] [address] [email or web address] 01/27/2026 10:45 AM EDT Office Visit [facility] [address] [place] [address] Isaías Guidry MD 10 [facility] 2nd [place] [address] 02/10/2026 1:40 PM EDT Office Visit [facility] [address] [address] Jovana Pearson MD [address] [address] documented as of this encounter Visit Diagnoses Not on filedocumented in this encounter Additional Health Concerns Infection Onset Date Last Indicated Resolved Time CoV-Risk 12/02/2022 12/02/2022 12/13/2022 1:21 AM EDT Assessment Noted Time PHQ-2 Depression Total Score: 0 07/12/20 22 11:10 AM EST documented as of this encounter Care Teams User Interface Designer Relationship Specialty Start Date End Date Jovana Pearson MD [address] [place] [address] PCP - General Family Medicine 01/02/21 documented as of this encounter Additional Source Comments The information contained in this document represents components of the legal health record. It is not the complete legal health record.[facility]
--- OUTSIDE RECORDS SUMMARY | 2025-07-22 08:15 | XMS_ITS | Encounter Summary ---
Author Organization [facility] Address [address] [place] [address] Phone Care Team Providers Care Beater Operator Name Role Phone Jovana Pearson MD Primary Care Provider Encounter Details Date Type Department Care Team (Late st Contact Info) Description 02/10/2023 Procedure Pass [facility] 30 [place] [address] Social History Tobacco Use Types Packs/Day Years [...] high school, GED, job training, learning the [place] Citizen language, technical skills, or developing parenting skills)? [...] No 07/12/2022 Digital Access Answer Date Recorded No 01/19/2023 No 01/19/2023 Reliable internet access at home? Not on file 01/19/2023 Device with a working camera? 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 [place] [address] 2025 10:45 AM EST Appointment [facility] [place] [address] [facility] 3rd [place] [address] Gera Harrington MD 22 [facility], [address] [place] [address] 08/14/2025 11:30 AM EST Office Visit [facility] [address] [facility] 3rd Floor, [address] [place] [address] Woo Garcia, TELEVISION CAMERA OPERATOR [address] [place] [address] 01/27/2026 10:45 AM EDT Office Visit [facility] [address] [place] [address] Isaías Guidry MD 10 [facility] [employer] [facility] 2nd [place] [address] 02/10/2026 1:40 PM EDT Office Visit [facility] [address] [facility] [address] [place] [address] Jovana Pearson MD 15 [facility] [address] [place] [address] documented as of this encounter Visit Diagnoses Not on filedocumented in this encounter Additional Health Concerns Assessment Noted Time PHQ-2 Depression Total Score: 0 07/12/20 22 11:10 AM EST documented as of this encounter Care Teams Beater Operator Relationship Specialty Start Date End Date Jovana Pearson MD 15 [facility] [address] [place] [address] PCP - General Family Medicine 01/02/21 documented as of this encounter Additional Source Comments The information contained in this document represents components of the legal health record. It is not the complete legal health record.[facility]
--- OUTSIDE RECORDS SUMMARY | 2025-07-22 08:15 | XMS_ITS | Encounter Summary ---
Author Organization [facility] Address [address] [place] [address] Phone Care Team Providers Care Digital Media Coordinator Name Role Phone Jovana Pearson MD Primary Care Provider Encounter Details Date Type Department Care Team (Late st Contact Info) Description 01/06/2022 Procedure Pass [facility] [address] [place] [address] Social History Tobacco Use Types Packs/Day Years Used Date Smoking Tobacco: Former Cigarettes 0.3 5 1 10/03/1971 - 08/02/1977 Smokeless Tobacco: Never Alcohol Use Standard Drinks/Week Comments Not Currently 3 (1 standard drink = 0.6 oz pure alcohol) quit winter was up to 2-3 per night Child or Family Care Answer Date Record ed Do you have problems with on e of the following making it difficult for you to work, study, or receive health care? Yes 05/13/2021 Education Answer Date Recorded Are you interested in help w ith more adult education (for example, completing high school, GED, job training, learning the Afghan language, technical skills, or developing parenting skills)? No 05/13/2021 Are you concerned about learning? Not on file 05/13/2021 Not on file 05/13/2021 Not on file 05/13/2021 Food Answer Date Recorded Within the past 6 months we worried whether our food would run out before we got money to buy more. Never True 05/13/2021 Within the past 6 months the food we bought just didn't last and we didn't have enough money to get more. Never True Paying for Meds Answer Date Recorded Do you have trouble paying for medicines? No 05/13/2021 Paying Utility Bills Answer Date Record ed Do you have trouble paying your heating or elect ricity bill? No 05/13/2021 Transportation Answer Date Recorded Has the lack of transportati on kept you from medical appointments or from getting medications? 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 [place] [address] 2025 10:45 AM EST Appointment [facility] [address] 3rd [place] [address] Gera Harrington MD [address] [place] [address], [address] [place] [address] 08/14/2025 11:30 AM EST Office Visit [facility] 22 [facility] 3rd Floor, [address] [place] [address] Woo Garcia, [address] [address] 01/27/2026 10:45 AM EDT Office Visit [facility] [address] [place] [address] Isaías Guidry MD 10 [facility] 2nd [place] [address] 02/10/2026 1:40 PM EDT Office Visit [facility] [address] [facility] [address] [place] [address] Jovana Pearson MD 15 [facility] [address] [place] [address] [email or web address] documented as of this encounter Visit Diagnoses Not on filedocumented in this encounter Additional Health Concerns Infection Onset Date Last Indicated Resolved Time CoV-Risk 12/02/2022 12/02/2022 12/13/2022 1:21 AM EDT Assessment Noted Time PHQ-2 Depression Total Score: 1 06/27/20 18 11:38 AM EDT documented as of this encounter Care Teams Digital Media Coordinator Relationship Specialty Start Date End Date Jovana Pearson MD 15 [facility] [address] [place] [address] PCP - General Family Medicine 01/02/21 documented as of this encounter Additional Source Comments The information contained in this document represents components of the legal health record. It is not the complete legal health record.[facility]
--- OUTSIDE RECORDS SUMMARY | 2025-07-22 08:15 | XMS_ITS | Encounter Summary ---
Author Organization [facility] Address [address] [place] [address] Phone Care Team Providers Care Teacher Counselor Name Role Phone Jovana Pearson MD Primary Care Provider Encounter Details Date Type Department Care Team (Late st Contact Info) Description 11/09/2023 Ancillary Orders [facility] [address] [place] [address] Isaías Santoyo MD [address] [place] [address] Left hand pain (Primary Dx) Social History Tobacco Use Types Packs/Day Years [...] high school, GED, job training, learning the Serbian language, technical skills, or developing parenting skills)? [...] your housing situation today? I have clarissa sing 08/03/2023 How many times have you move [...] computer) with a working camera? 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 [place] [address] 2025 10:45 AM EST Appointment [facility] [place] [address] [place] 3rd [place] [address] Gera Harrington MD 22 [facility], [address] [place] [address] 08/14/2025 11:30 AM EST Office Visit [facility] [address] [facility] 3rd Floor, [address] [place] [address] Woo Garcia, [address] [address] 01/27/2026 10:45 AM EDT Office Visit [facility] 10 [place] [address] Isaías Guidry MD [address] [place] [address] 02/10/2026 1:40 PM EDT Office Visit [facility] [place] [facility] [address] [facility] [address] [place] [address] Jovana Pearson MD 15 [facility] [address] [place] [address] documented as of this encounter Results * XR HAND 3 OR MORE VIEWS (RIGHT) (11/09/2023 11:21 AM EDT) Narrative SYSTEMGENERATED, DOCUMENTATION - 11/09/2023 11:22 AM EDT This image report has been auto-finalized and has not been read by a Radiologist. Interpretation has been included in the provider encounter note for this date of service. us Isaías Santoyo MD IMG XR UPPER EXTREMITY Final Result documented in this encounter Visit Diagnoses Diagnosis Left hand pain Pain in soft tissues of limb Left hand pain- Primary Pain in soft tissues of limb documented in this encounter Additional Health Concerns Assessment Noted Time PHQ-2 Depression Total Score: 2 08/03/20 23 10:20 AM EST documented as of this encounter Care Teams Teacher Counselor Relationship Specialty Start Date End Date Jovana Pearson MD [address] [place] [address] [email or web address] PCP - General Family Medicine 01/02/21 documented as of this encounter Additional Source Comments The information contained in this document represents components of the legal health record. It is not the complete legal health record.[facility]
--- OUTSIDE RECORDS SUMMARY | 2025-07-22 08:15 | XMS_ITS | Encounter Summary ---
Author Organization 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 [place] [address] 2025 10:45 AM EST Appointment [facility] [place] [address] [place] 3rd [place] [address] Gera Harrington MD 22 [facility], [address] [place] [address] 08/14/2025 11:30 AM EST Office Visit [facility] 22 [facility] [facility], [address] [place] [address] Woo Garcia, [address] [address] 01/27/2026 10:45 AM EDT Office Visit [facility] 10 [place] [address] Isaías Guidry MD [address] [place] [address] 02/10/2026 1:40 PM EDT Office Visit [facility] [address] [facility] [address] [place] [address] Jovana Pearson MD 15 [facility] [address] [place] [address] documented as of this encounter Visit Diagnoses [...] documented as of this encounter Care Teams Financial Sales Representative Relationship Specialty Start Date End Date Radha Boles DO [address] [place] [address] [email or web address] PCP - General 09/01/18 01/01/21 Jovana Pearson MD [address] [place] [address] [email or web address] PCP - General Family Medicine 01/02/21 documented as of this encounter Additional Source Comments The information contained in this document represents components of the legal health record. It is not the complete legal health record.[facility]
--- OUTSIDE RECORDS SUMMARY | 2025-07-22 08:15 | XMS_ITS | Encounter Summary ---
Author Organization [facility] Address [address] [place] [address] Phone Care Team Providers Care Spool Maker Name Role Phone Jovana Pearson MD Primary Care Provider Encounter Details Date Type Department Care Team (Late st Contact Info) Description 12/30/2021 Procedure Pass [facility] - [address] [address] Social History Tobacco Use Types Packs/Day Years Used Date Smoking Tobacco: Former Cigarettes 0.3 5 1 10/03/1971 - 08/02/1977 Smokeless Tobacco: Never Alcohol Use Standard Drinks/Week Comments Yes 3 (1 standard drink = 0.6 oz pur e alcohol) Child or Family Care Answer Date Record ed Do you have problems with on e of the following making it difficult for you to work, study, or receive health care? Yes 05/13/2021 Education Answer Date Recorded Are you interested in help w ith more adult education (for example, completing high school, GED, job training, learning the [place] language, technical skills, or developing parenting skills)? 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 Wish to be (Past 1 Month) No 12/30/2021 2:31 PM EDT Pham Kurtz, RAUL 2. Non-Specific Active Suicidal Thoughts (Past 1 Month) No 12/30/2021 2:31 PM EDT Pham Kurtz, RAUL 6. Suicidal Behavior (Lifetime) No 12/30/2021 2:31 PM EDT Pham Kurtz RN documented as of this encounter Plan of Treatment Upcoming Encounters Date Type Department Care Team (Late st Contact Info) Description 08/05/2025 10:40 AM EST [facility] Visit [facility] [facility] [address] [facility] [address] [place] [address] Jovana Pearson MD 15 [facility] [address] [place] [address] 2025 10:45 AM EST Appointment [facility] [place] [address]rd [place] [address] Gera Harrington MD 22 [facility], [address] [place] [address] 08/14/2025 11:30 AM EST Office Visit [facility] [address] [facility] [address] [facility], [address] [place] [address] Woo Garcia, NODE JS DEVELOPER [address] [place] [address] [email or web address] 01/27/2026 10:45 AM EDT Office Visit [facility] [address] [place] [address] Isaías Guidry MD [address] [place] [address] 02/10/2026 1:40 PM EDT Office Visit [facility] [facility] 15 [facility] [address] [place] [address] Jovana Pearson MD [address] [place] [address] 201 [place] [address] documented as of this encounter Visit Diagnoses Not on filedocumented in this encounter Additional Health Concerns Infection Onset Date Last Indicated Resolved Time CoV-Risk 12/02/2022 12/02/2022 12/13/2022 1:21 AM EDT Assessment Noted Time PHQ-2 Depression Total Score: 1 06/27/20 18 11:38 AM EDT documented as of this encounter Care Teams Spool Maker Relationship Specialty Start Date End Date Jovana Pearson MD [address] [place] [address] 201 [place] [address] PCP - General Family Medicine 01/02/21 documented as of this encounter Additional Source Comments The information contained in this document represents components of the legal health record. It is not the complete legal health record.[facility]
--- OUTSIDE RECORDS SUMMARY | 2025-07-22 08:15 | XMS_ITS | Encounter Summary ---
Author Organization [facility] Address [address] [place] [address] Phone Care Team Providers Care Casting Machine Operator Helper Name Role Phone Jovana Pearson MD Primary Care Provider Encounter Details Date Type Department Care Team (Late st Contact Info) Description 05/11/2024 Procedure Pass [facility], Ct Scan - [address] [address] Social History Tobacco Use Types Packs/Day Years [...] high school, GED, job training, learning the Faroese language, technical skills, or developing parenting skills)? [...] as food, clothing, or medical care? No 05/11/2024 In the past 12 months have y ou been in a relationship with a person who hurts, threatens, or tries to control you? No 05/11/2024 Are you denied basic needs s uch as food, clothing, or medical care? No 05/11/2024 In the past 12 months have y ou been in a relationship with a person who hurts, threatens, or tries to control you? 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 Wish to be (Past 1 Month) No 05/11/2024 11:09 AM EDT Eleazar Santoyo RN 2. Non-Specific Active Suicidal Thoughts (Past 1 Month) No 05/11/2024 11:09 AM EDT Eleazar Santoyo RN 6. Suicidal Behavior (Lifetime) No 05/11/2024 11:09 AM EDT Eleazar Santoyo RN documented as of this encounter Plan of Treatment Upcoming Encounters Date Type Department Care Team (Late st Contact Info) Description 08/05/2025 10:40 AM EST Office Visit [facility] [address] [facility] [address] [place] [address] Jovana Pearson MD 15 [facility] [address] [place] [address] 2025 10:45 AM EST Appointment [facility] [place] [address] [facility] 3rd [place] [address] Gera Harrington MD 22 [facility], [address] [place] [address] 08/14/2025 11:30 AM EST Office Visit [facility] [address] [facility] 3rd Floor, [address] [place] [address] Woo Garcia, SHEET SORTER [address] [place] [address] 01/27/2026 10:45 AM EDT Office Visit [facility] 10 [facility] [place], [place] [id number] Isaías Guidry MD [address] [address] 02/10/2026 1:40 PM EDT [facility] [place] [facility] 15 [facility] 201 [place] [address] Jovnaa Pearson MD 15 [facility] [address] [place] [address] documented as of this encounter Visit Diagnoses Not on filedocumented in this encounter Additional Health Concerns Assessment Noted Time PHQ-2 Depression Total Score: 2 08/03/20 23 10:20 AM EST documented as of this encounter Care Teams Casting Machine Operator Helper Relationship Specialty Start Date End Date Jovana Pearson MD 15 [facility] 201 [place] [address] PCP - General Family Medicine 01/02/21 documented as of this encounter Additional Source Comments The information contained in this document represents components of the legal health record. It is not the complete legal health record.[facility]
--- OUTSIDE RECORDS SUMMARY | 2025-07-22 08:15 | XMS_ITS | Encounter Summary ---
Author Organization [facility] Address [address] [facility] [address] [place] [address] Phone Care Team Providers Care Cap Jewel Plate Assembler Name Role Phone Trae Arevalo MD Primary Care Provide r Radha Boles DO Primary Care Provider [phone]- [phone] Jovana Pearson MD Primary Care Provider [phone]- [phone] Encounter Details Date Type Department Care Team (Late st Contact Info) Description 08/25/2017 Ancillary Orders [facility] Medicine [address] [place] [address] Trae Arevalo MD 22 [facility] Floor 1 [place] [address] [email or web address] Pain of left calf Social History Tobacco Use Types Packs/Day Years [...] 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 Not on file Shantel sidhu Not on file Not on file Not on file documented as of this encounter Plan of Treatment Upcoming Encounters Date Type Department Care Team (Late st Contact Info) Description 08/05/2025 10:40 AM EST Office Visit [facility] Primary Care 15 [facility] 201 [place] [address] Jovana Pearson MD [address] [address] 2025 10:45 AM EST Appointment [facility] [address] [place] [address] Gera Harrington MD 22 [facility], [address] [address] 08/14/2025 11:30 AM EST Office Visit [facility] 22 [facility] 3rd Floor, [address] [place] [address] Woo Garcia, SEAT TRIMMER [address] [place] [address] 01/27/2026 10:45 AM EDT Office Visit [facility] 10 [place] [address] Isaías Guidry MD [address] [place] [address] 02/10/2026 1:40 PM EDT Office Visit [facility] 15 [facility] 201 [place] [address] Jovana Pearson MD [address] [address] documented as of this encounter Results * US Lower Extremity Veins Duplex (Left) (08/25/2017 1:15 PM EST) Anatomical Region Laterality Modality Hip Left, Thigh Left, Knee L eft, Leg Left, Ankle Left, Foot Left Ultrasound 08/25/2017 1:19 PM EST Impressions 08/25/2017 1:58 PM EST No evidence of deep venous thrombosis from the common femoral vein to the popliteal vein in the left lower extremity. 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 POS - [id number] Edited by: Lexii Boyce on 08/25/2017 1:25 PM Narrative 08/25/2017 1:58 PM EST Ultrasonic examination of the deep venous system of the left leg was performed from the common femoral vein into the upper calf and includes the posterior tibial vein at the ankle, and demonstrates preserved flow, compressibility, and augmentation throughout the visualized deep venous system. There is absent flow in the distal femoral artery with what appears to be collateral flow as there is flow in the dorsalis pedis and popliteal arteries. No Veras's cyst. Procedure Note Claudine Shaw MD - 08/25/2017 Ultrasonic examination of the deep venous system of the left leg wasperformed from the common femoral vein into the upper calf and includesthe posterior tibial vein at the ankle, and demonstrates preserved flow,compressibility, and augmentation throughout the visualized deep venoussystem. There is absent flow in the distal femoral artery with whatappears to be collateral flow as there is flow in the dorsalis pedis andpopliteal arteries. No Veras's cyst. IMPRESSION: No evidence of deep venous thrombosis from the common femoral vein to thepopliteal vein in the left lower extremity. Superficial femoral arterialocclusion or high- grade stenosis near the level of the adductor canal. POS - [id number] Edited by: Lexii Boyce on 08/25/2017 1:25 PM Trae Arevalo MD [facility] Final Result documented in this encounter Visit Diagnoses Diagnosis Pain of left calf Pain of left calf documented in this encounter Additional Health Concerns Infection Onset Date Last Indicated Resolved Time CoV-Risk 01/09/2021 01/09/2021 01/19/2021 1:23 AM EDT CoV-Risk Comment:Per Ambulatory Triage Form 07/27/2021 07/28/202107/28 7:05 PM EST COVID-19 07/28/2021 07/28/2021 08/18/2021 1:21 AM EST CoV-Risk 12/02/2022 12/02/2022 12/13/2022 1:21 AM EDT documented as of this encounter Care Teams Cap Jewel Plate Assembler Relationship Specialty Start Date End Date Trae Arevalo MD [email or web address] PCP - General Internal Medicine 07/05/17 08/31/18 Radha Boles DO [address] [place] [address] [email or web address] PCP - General 09/01/18 01/01/21 Jovana Pearson MD [address] [place] [address] PCP - General Family Medicine 01/02/21 documented as of this encounter Additional Source Comments The information contained in this document represents components of the legal health record. It is not the complete legal health record.[facility]
--- OUTSIDE RECORDS SUMMARY | 2025-07-22 08:15 | XMS_ITS | Encounter Summary ---
Author Organization [facility] Address [address] [place] [address] Phone Care Team Providers Care Holter Scanning Technician Name Role Phone Jovana Pearson MD Primary Care Provider Encounter Details Date Type Department Care Team (Late st Contact Info) Description 10/21/2023 Procedure Pass [facility] [address] [place] [address] Social History Tobacco Use Types Packs/Day Years [...] high school, GED, job training, learning the Spanish language, technical skills, or developing parenting skills)? 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 [place] [address] 2025 10:45 AM EST Appointment [facility] [place] [address] [place] 3rd [place] [address] Gera Harrington MD 22 [facility], [address] [place] [address] 08/14/2025 11:30 AM EST Office Visit [facility] 22 [facility] 3rd Floor, [address] [place] [address] Woo Garcia, TOPOGRAPHICAL SURVEYOR [address] [place] [address] 01/27/2026 10:45 AM EDT Office Visit [facility] 10 [facility] [place] [address] Isaías Guidry MD 10 [facility] 2nd [place] [address] 02/10/2026 1:40 PM EDT Office Visit [facility] [place] [facility] 15 [facility] [address] [place] [address] Jovana Pearson MD 15 [facility] [address] [place] [address] documented as of this encounter Visit Diagnoses Not on filedocumented in this encounter Additional Health Concerns Assessment Noted Time PHQ-2 Depression Total Score: 2 08/03/20 23 10:20 AM EST documented as of this encounter Care Teams Holter Scanning Technician Relationship Specialty Start Date End Date Jovana Pearson MD 15 [facility] [address] [place] [address] PCP - General Family Medicine 01/02/21 documented as of this encounter Additional Source Comments The information contained in this document represents components of the legal health record. It is not the complete legal health record.[facility]
--- OUTSIDE RECORDS SUMMARY | 2025-07-22 08:15 | XMS_ITS | Encounter Summary ---
Author Organization [facility] Address 399 [facility] [address] [place] [address] Phone Care Team Providers Care Nitric Acid Plant Operator Name Role Phone Trae Arevalo MD Primary Care Provide r Radha Boles DO Primary Care Provider [phone]- [phone] Jovana Pearson MD Primary Care Provider [phone] Encounter Details Date Type Department Care Team (Late st Contact Info) Description 03/02/2018 Transcribe Orders [facility] 30 [place] [address] Trae Arevalo MD 22 [facility] Floor 1 [place] [address] [email or web address] Social History Tobacco Use Types Packs/Day Years [...] 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 Not on file Not on file documented as of this encounter Plan of Treatment Upcoming Encounters Date Type Department Care Team (Late st Contact Info) Description 08/05/2025 10:40 AM EST Office Visit [facility] 15 [facility] [address] [place] [address] Jovana Pearson MD [address] [address] 2025 10:45 AM EST Appointment [facility] [place] 22 [facility] 3rd [place] [address] Gera Harrington MD 22 [facility], [address] [address] 08/14/2025 11:30 AM EST Office Visit [facility] 22 [facility] 3rd [facility], [address] [place] [address] Woo Garcia, MANAGER OF NETWORK [address] [place] [address] 01/27/2026 10:45 AM EDT Office Visit [facility] 10 [place] [address] Isaías Guidry MD [address] [place] [address] 2nd [place] [address] 02/10/2026 1:40 PM EDT Office Visit [facility] [address] [facility] [address] [place] [address] Jovana Pearson MD [address] [address] documented as of this encounter Visit Diagnoses Not on filedocumented in this encounter Additional Health Concerns Infection Onset Date Last Indicated Resolved Time CoV-Risk 01/09/2021 01/09/2021 01/19/2021 1:23 AM EDT CoV-Risk Comment:Per Ambulatory Triage Form 07/27/2021 07/28/202107/28 7:05 PM EST COVID-19 07/28/2021 07/28/2021 08/18/2021 1:21 AM EST CoV-Risk 12/02/2022 12/02/2022 12/13/2022 1:21 AM EDT documented as of this encounter Care Teams Nitric Acid Plant Operator Relationship Specialty Start Date End Date Trae Arevalo MD [email or web address] PCP - General Internal Medicine 07/05/17 08/31/18 Radha Boles DO [address] [place] [address] [email or web address] PCP - General 09/01/18 01/01/21 Jovana Pearson MD [address] [place] [address] [email or web address] PCP - General Family Medicine 01/02/21 documented as of this encounter Additional Source Comments The information contained in this document represents components of the legal health record. It is not the complete legal health record.[facility]
== END 2025-07-22 08:59 | disposition home or self-care (01) ==
LOC: HO.HPODS 08:07
PROVIDERS: PCP Family Medicine; Visit Provider Student in an Organized Health Care Education/Training Program
DX: L60.0 Ingrowing nail (principal); M79.674 Pain in right toe(s); M79.675 Pain in left toe(s); B35.1 Tinea unguium; L60.9 Nail disorder, unspecified
CPT/HCPCS: 11730; 99204

== ENCOUNTER → 2025-07-22 08:06 | Outpatient (BNVA) | payer MEDICARE, SELFPAY | PROVIDERS: PCP Family Medicine; Visit Provider Student in an Organized Health Care Education/Training Program | DX: L60.9 Nail disorder, unspecified (principal); B35.1 Tinea unguium; L60.0 Ingrowing nail; M79.674 Pain in right toe(s); M79.675 Pain in left toe(s) | CPT/HCPCS: 11730; 99202; J2003 ==

== ENCOUNTER 2025-08-06 09:45 | Outpatient (AMB) | payer MEDICARE, SELFPAY ==
[2025-08-06 09:53] VITALS: BMI 21.7
--- NOTE | 2025-08-06 09:53 | A.OFFVIS_ITS ---
Vital Signs 08/06/25 09:53 Height 6 ft Weight 160 lb BMI 21.7 Intake Visit Reasons: 30 min appt for right hallux PNA; f/u left hallux Intake Note: Isaías is a 64 year old male who presents to the office today for a right hallux PNA and a follow up on his left hallux. Pt states his left hallux has since improved and he no longer is experiencing any pain at this time. Patient has no further questions or concerns Allergies Seasonal Allergies Allergy (Verified 08/06/25 09:54) stuffy nose HPI Comments Details: The patient is a 64 year old male presenting for a follow-up of previous partial nail avulsion to the left hallux at last visit and plan for partial nail a vulsion of the right hallux today. Patient states the left hallux has been feeling better after the procedure. Patient experiences pain to the right hallux due to the ingrown nail on the medial border. He denies any associated pus or bleeding from the toe. The patient also inquired about treatment options for the thickened and discolored appearance of his toenails. He denies any new pedal injuries. He denies any other pedal concerns. [facility] Medical History (Updated 07/22/25 @ 08:47 by Erika Ramírez DPM) Nail disorder Tinea unguium Pain in toes of both feet Ingrowing nail Review of Systems Const Details: - Musculoskeletal/Extremities: Reports intermittent pain in the right hallux due to an ingrown toenail. - Integumentary: Reports healed left hallux partial nail avulsion site. All systems reviewed & are unremarkable except as noted in HPI and below Physical Exam Vital Signs: BMI result Body Mass Index 21.7 Extrem Other: B/L LE Focused Physical Exam: Derm: Healed left hallux partial nail avulsion site with no active drainage, purulence, or bleeding noted. Increased incurvation to the medial border of the right hallucal nail consistent with an ingrown. Mild edema noted to the medial nail border of the right hallux. No active bleeding, purulence, or drainage noted. Toenails x10 noted to be thickened, dystrophic, and discolored with subungual debris (worse to B/L hallucal nails). Skin supple and turgor WNL. No open lesions, abrasions, or wounds noted. No maceration or hyperkeratotic areas noted. No clinical signs of infection. Vasc: DP/PT pulses palpable. CFT < 3 secs. Temp gradient warm to warm. Pedal hair present. No varicosities noted. Neuro: Protective sensations grossly intact. MSK: Pain on palpation to the medial nail border of the right hallux. No crepitus or fluctuance noted. ROM of the forefoot, hindfoot, and ankles WNL. Mildly antalgic gait noted unassisted. Hammertoes/claw toes noted B/L. Office Procedures AMB Debridement/Avulsion Podia Details: Procedure: Right hallux partial nail avulsion of the medial border Cleansed the right hallux with alcohol swab and injected 10cc of 1%lidocaine plain in a hallux block fashion. Next applied a tourniquet to the right hallux and then cleansed the right hallux with Betadine. Attention was drawn to the medial border of the right hallux and a [place] was utilized to free the offending nail border from the nail bed. Next an [place] anvil was utilized to trim and cut the offending nail border and a hemostat was used to remove the offending nail border completely. A curette was used to ensure all spicules of the nail were removed from the nail bed. Triple antibiotic ointment, 2 x 2 gauze, and [place] was then applied to the right hallux. Procedure was done with no incidents. Provided patient with aftercare instructions. [id number] Partial/Total nail avulsion (1 nail) Procedure code (CPT) selection complete Office Meds lidocaine HCl 10 mg/mL (1 %) injection solution Performing Provider: Erika Ramírez DPM Performing Location: [facility] [place] [facility] Administered by: Erika Ramírez DPM on 08/09/25 08:34 Dose Route Admin Location Dispensed Lot Number Expiration Date [facility] Compressor Battery Pellets 10 mL subcut 10 mL [id number] [employer] Total Dispensed Waste 10 mL 0 % Triple Antibiotic 3.5 mg-400 unit-5,000 unit topical ointment packet Performing Provider: Erika Ramírez DPM Performing Location: [facility] [place] [facility] Administered by: Erika Ramírez DPM on 08/09/25 08:34 Dose Route Admin Location Dispensed Lot Number Expiration Date [facility] Compressor Battery Pellets 1 appl topical 1 appl [id number] [employer] povidone-iodine 10 % topical swab Performing Provider: Erika Ramírez DPM Performing Location: [facility] [place] [facility] Administered by: Erika Ramírez DPM on 08/09/25 08:34 Dose Route Admin Location Dispensed Lot Number Expiration Date [facility] Compressor Battery Pellets 1 appl topical 1 appl [id number] [employer] [place]. ethyl chloride 100 % topical spray Performing Provider: Erika Ramírez DPM Performing Location: [facility] [place] [facility] Administered by: Erika Ramírez DPM on 08/09/25 08:34 Dose Route Admin Location Dispensed Lot Number Expiration Date [facility] Compressor Battery Pellets 1 appl topical 116 mL [id number] [employer]. Assessment & Plan Assessment & Plan (1) Tinea unguium: Code(s): B35.1 - Tinea unguium Category: Medical (2) Nail disorder: Code(s): L60.9 - Nail disorder, unspecified Category: Medical (3) Pain in toes of both feet: Code(s): M79.674 - Pain in right toe(s); M79.675 - Pain in left toe(s) Category: Medical (4) Ingrowing nail: Code(s): L60.0 - Ingrowing nail Category: Medical Plan Patient was informed and verbally consented to the use of an ambient scribe for clinic note documentation during this visit. I discussed the plan to perform a partial nail avulsion on the medial border of the right hallux, for which consent was obtained. I explained that the causes of ingrown nails can include tight footwear, hereditary factors related to nail shape, and age-related changes where nails curve inward. I informed him about the possibility of recurrence and advised preventative measures such as filing the nail edges; I also mentioned that a chemical procedure could be an option if the problem persists. Given his report of significant pain the morning after his last procedure, I advised him to take his existing pain medication tonight as a preventative m easure for soreness. I provided detailed post-procedure instructions, including keeping the dressing in place for 24 hours, followed by daily soaks in warm water with Epsom salt for two weeks with application of Neosporin and a Band- Aid. I instructed him to monitor for signs of infection like increased redness or swelling and to contact the office if they appear, at which point I could prescribe antibiotics. In response to his questions about toenail thickness and discoloration, I explained that I would prescribe Ciclopirox solution. I clarified that this medication helps with discoloration over the course of about a year as the nail grows out, and instructed him to file the nail surface daily before application for better penetration. I advised him to use it on all toes for treatment and prevention, but to wait a couple of weeks before applying it to the right big toe to allow for healing. - Performed partial nail avulsion of the right hallux medial border after obtaining consent. - Post-procedure, recommended the patient take his previously prescribed pain medication tonight to preemptively manage potential soreness. - Instructed the patient to keep the bandage on for 24 hours, then begin daily soaks in warm water and Epsom salt for two weeks with application of Neosporin and a Band-Aid. - Advised patient to monitor for signs of infection, such as significant swelling or redness, and to call the office if these occur for a possible antibiotic prescription. - Prescribed Ciclopirox solution for onychomycosis, advised patient to avoid hallucal nail due to procedure. - Instructed the patient on the application of Ciclopirox: apply daily after filing the top of the nail; use on all toes except the right great toe until it has healed. - Discussed preventative measures for ingrown toenails, including filing down nail edges and considering a chemical procedure for recurrent issues. RTC 2 weeks. Orders: Orders AMB Debridement/Avulsion Podiatry 08/06/25 B35.1 - Tinea unguium, L60.0 - Ingrowing nail, L60.9 - Nail disorder, unspecified, M79.674 - Pain in right t oe(s), M79.675 - Pain in left toe(s) Medications: New ciclopirox 8% 1 appl topical BEDTIME 6.6 mL 1RF 4 weeks B35.1 - Tinea unguium Coding Level of Care Code Est Pt Level 4 (79344) Diagnoses Tinea unguium B35.1 Nail disorder L60.9 Pain in toes of both feet M79.674; M79.675 Ingrowing nail L60.0 CPT Codes Skin Debridement - CPT: 12231 Partial/Total nail avulsion (1 nail) ([id number]) Time Spent (min) 45 Comment 15 mins for procedure
== END 2025-08-06 10:35 | disposition home or self-care (01) ==
LOC: HO.HPODS 09:45
PROVIDERS: PCP Family Medicine; Visit Provider Student in an Organized Health Care Education/Training Program
DX: M79.674 Pain in right toe(s) (principal); M79.675 Pain in left toe(s); L60.0 Ingrowing nail; B35.1 Tinea unguium; L60.9 Nail disorder, unspecified
CPT/HCPCS: 11730; 99214

== ENCOUNTER → 2025-08-06 09:45 | Outpatient (BNVA) | payer MEDICARE, SELFPAY | PROVIDERS: PCP Family Medicine; Visit Provider Student in an Organized Health Care Education/Training Program | DX: B35.1 Tinea unguium (principal); L60.9 Nail disorder, unspecified; L60.0 Ingrowing nail; M79.674 Pain in right toe(s); M79.675 Pain in left toe(s) | CPT/HCPCS: 11730; 99212; J2003 ==